=== PATIENT | female | born 1945 | race Hispanic/Latino ===

== ENCOUNTER 2020-10-08 12:31 | Inpatient (IN) | payer MEDICARE ==
[2020-10-08] MEDS ORDERED: SODIUM CHLORIDE 0.9% 1000 ML 1,000 ML IV ONE (12:52)
[2020-10-08] MEDS ORDERED: ONDANSETRON 4 MG/2 ML INJ IV ONE (12:52)
--- NOTE | 2020-10-08 13:07 | Emergency Department Report ---
HPI <NIDIA CISNEROS - Last Filed: 10/08/20 18:06> - [facility] HPI: This is a 75-year-old female presents to the emergency department with a complaint of "I think I have a blockage." The patient has been dealing with nausea, vomiting and abdominal pain over the past few weeks. She says that she has lost about 10 to 20 pounds over that time as she is unable to eat anything without increased nausea with vomiting. She says that if she does not have any food in her stomach then she just "retches." Patient also says that she has not had a normal or satisfactory bowel movement in about 1 week. The patient went to [facility] last week for the same symptoms and says that she was "sent home to follow-up with my doctor", Dr. Sexton in [place]. He recommended that she try an enema, but the patient says that "it did nothing." She denies any past medical history. She is a tobacco smoker up until a few days ago. She denies any fever, dysuria, vaginal bleeding or discharge, rectal bleeding, diarrhea. <AVNI GIBBS - Last Filed: 10/11/20 10:00> - General Time Seen by Provider: 10/08/20 12:45 ED Past Medical Hx <NIDIA CISNEROS - Last Filed: 10/08/20 18:06> <AVNI GIBBS - Last Filed: 10/11/20 10:00> - Medications Home Medications: Home Medications Medication Instructions Recorded Confirmed Last Taken Type Levothyroxine [Synthroid] 50 mcg PO QAM 10/09/20 10/09/20 2 Weeks Ago History ~09/25/20 50 mcg ED Review of Systems ROS: Stated complaint: UNABLE TO HAVE BOWEL MOVEMENT Other details as noted in HPI <NIDIA CISNEROS - Last Filed: 10/08/20 18:06> ROS: Stated complaint: UNABLE TO HAVE BOWEL MOVEMENT Other details as noted in HPI Comment: All other systems reviewed and negative Constitutional: denies: chills, fever Eyes: denies: eye pain, vision change ENT: denies: ear pain, throat pain Respiratory: denies: cough, shortness of breath Cardiovascular: denies: chest pain, palpitations Endocrine: unexplained weight loss Gastrointestinal: abdominal pain, nausea, vomiting, constipation Genitourinary: denies: dysuria, discharge Musculoskeletal: denies: back pain, arthralgia Skin: denies: rash, lesions Neurological: denies: headache, weakness <AVNI GIBBS - Last Filed: 10/11/20 10:00> Physical Exam - Physical Exam Vital Signs: Vital Signs 10/08/20 10/08/20 12:42 13:09 Temperature 97.8 F Pulse Rate 88 Respiratory 22 18 Rate Blood Pressure 179/98 [Left] O2 Sat by Pulse 98 Oximetry <NIDIA CISNEROS - Last Filed: 10/08/20 18:06> - Physical Exam Vital Signs: Vital Signs 10/08/20 12:42 Temperature 97.8 F Pulse Rate 88 Respiratory 22 Rate Blood Pressure 179/98 [Left] O2 Sat by Pulse 98 Oximetry Physical Exam: GENERAL: The patient is well-developed well-nourished. HENT: Normocephalic. Atraumatic. Patient has moist mucous membranes. EYES: Extraocular motions are intact. NECK: Supple. Trachea is midline. CHEST/LUNGS: Clear to auscultation. There is no respiratory distress noted. HEART/CARDIOVASCULAR: Regular. There is no tachycardia. There is no murmur. ABDOMEN: Abdomen is soft. The patient has abdominal tenderness to palpation all quadrants except for her left upper quadrant. No guarding. Patient has normal bowel sounds. SKIN: Skin is warm and dry. NEURO: The patient is awake, alert, and oriented. The patient is cooperative. The patient has no focal neurologic deficits. Normal speech. MUSCULOSKELETAL: There is no tenderness or deformity. There is no limitation range of motion. <AVNI GIBBS - Last Filed: 10/11/20 10:00> ED Course Vital Signs 10/08/20 10/08/20 12:42 13:09 Temperature 97.8 F Pulse Rate 88 Respiratory 22 18 Rate Blood Pressure 179/98 [Left] O2 Sat by Pulse 98 Oximetry <NIDIA CISNEROS - Last Filed: 10/08/20 18:06> Vital Signs 10/08/20 12:42 Temperature 97.8 F Pulse Rate 88 Respiratory 22 Rate Blood Pressure 179/98 [Left] O2 Sat by Pulse 98 Oximetry <AVNI GIBBS - Last Filed: 10/11/20 10:00> ED Medical Decision Making - Lab Data Result diagrams: 10/08/20 13:34 10/08/20 13:34 - Medical Decision Making Patient is 75-year-old female signed out to me by my colleague Dr. Gibbs. Patient presented to the ER complaining of diffuse abdominal pain for approximately 1week. Labs reviewed and showed elevated white blood cells of 14. Patient received Zosyn. CT abdomen and pelvis with IV contrast showed dilated small bowel loops in also thickening in the sigmoid concerning for colitis and also concern for malignancy. I discussed the patient with Dr. Luna, surgeon industrial economist and he advised that she will follow-up with the patient. I discussed the patient with Dr. Kelley, he agreed to admit the patient to medical service for further management. <NIDIA CISNEROS. - Last Filed: 10/08/20 18:06> - Lab Data Result diagrams: 10/10/20 05:15 10/10/20 05:15 Lab Results 10/08/20 10/08/20 Range/Units 13:34 13:34 WBC 14.6 H (4.5-11.0) K/mm3 RBC 5.49 H (3.65-5.03) M/mm3 Hgb 17.6 H (10.1-14.3) gm/dl Hct 51.6 H (30.3-42.9) % MCV 94 (79-97) fl MCH 32 (28-32) pg MCHC 34 (30-34) % RDW 13.9 (13.2-15.2) % Plt Count 307 (140-440) K/mm3 Lymph % (Auto) 11.4 L (13.4-35.0) % Hancock % (Auto) 7.0 (0.0-7.3) % Eos % (Auto) 0.3 (0.0-4.3) % Baso % (Auto) 0.5 (0.0-1.8) % Lymph # (Auto) 1.7 (1.2-5.4) K/mm3 Hancock # (Auto) 1.0 H (0.0-0.8) K/mm3 Eos # (Auto) 0.0 (0.0-0.4) K/mm3 Baso # (Auto) 0.1 (0.0-0.1) K/mm3 Seg Neutrophils % 80.8 H (40.0-70.0) % Seg Neutrophils # 11.8 H (1.8-7.7) K/mm3 Sodium 135 L (137-145) mmol/L Potassium 3.6 (3.6-5.0) mmol/L Chloride 99.0 (98-107) mmol/L Carbon Dioxide 20 L (22-30) mmol/L Anion Gap 20 mmol/L BUN 16 (7-17) mg/dL Creatinine 0.7 (0.6-1.2) mg/dL Estimated GFR > 60 ml/min BUN/Creatinine Ratio 23 % Glucose 116 H (65-100) mg/dL Calcium 8.8 (8.4-10.2) mg/dL Total Bilirubin 0.90 (0.1-1.2) mg/dL AST 17 (5-40) units/L ALT 16 (7-56) units/L Alkaline Phosphatase 63 (35-129) units/L Total Protein 6.5 (6.3-8.2) g/dL Albumin 3.8 L (3.9-5) g/dL Albumin/Globulin Ratio 1.4 % Lipase 11 L (13-60) units/L - Radiology Data Radiology results: report reviewed CT ABDOMEN AND PELVIS WITH CONTRAST INDICATION / CLINICAL INFORMATION: Unspecified abdominal pain, prior abnormal acute abdomen series. TECHNIQUE: Axial CT images were obtained through the abdomen and pelvis after 100 cc Omnipaque [address] scans at this location are performed using CT dose reduction for ALARA by means of automated exposure control. COMPARISON: Abdominal series performed earlier today. FINDINGS: LOWER CHEST: No significant abnormality. LIVER: No significant abnormality. GALLBLADDER: Surgically absent. BILE DUCTS: Prominence of the bile ducts is compatible with the patient's age and prior cholecystectomy. No acute abnormality. PANCREAS: No significant abnormality. SPLEEN: No significant abnormality. ADRENALS: No significant abnormality. RIGHT KIDNEY / URETER: No significant abnormality. LEFT KIDNEY / URETER: No significant abnormality. STOMACH / SMALL BOWEL: No significant abnormality of the stomach or duodenum. Mildly dilated small bowel loops are seen beginning along the proximal/mid jejunum that continues to the ileocecal valve without a distinct transition point. No other significant abnormality is identified. COLON: There is sigmoid diverticulosis without evidence of diverticulitis. Moderate focal thickening of the distal third of the transverse colon is noted on image 56 of series 2 spanning a distance of 3.5 cm. There is nonspecific mild distention of the cecum. No other significant abnormality is noted. APPENDIX: Not visualized. PERITONEUM: No free fluid. No free air. No flui d collection. LYMPH NODES: No significant adenopathy. AORTA / ARTERIES: The aorta is normal in caliber with mild generalized atherosclerosis. IVC / VEINS: No significant abnormality. URINARY BLADDER: No significant abnormality. REPRODUCTIVE ORGANS: No significant abnormality. ADDITIONAL FINDINGS: None. SKELETAL SYSTEM: The bones are demineralized with mild degenerative changes throughout the spine. No acute abnormality. IMPRESSION: 1. Nonspecific mild small bowel dilatation without a distinct transition point. Close clinical follow-up is recommended. 2. Suspicious focal thickening of the transverse colon as above. Malignancy cannot be excluded. Further evaluation with colonoscopy when the patient's clinical condition allows is recommended. 3. Additional findings as above. <AVNI GIBBS S - Last Filed: 10/11/20 10:00> Critical care attestation.: If time is entered above; I have spent that time in minutes in the direct care of this critically ill patient, excluding procedure time. <NIDIA CISNEROS. - Last Filed: 10/08/20 18:06> Critical Care Time: No Critical care attestation.: If time is entered above; I have spent that time in minutes in the direct care of this critically ill patient, excluding procedure time. <AVNI GIBBS S - Last Filed: 10/11/20 10:00> ED Disposition Is pt being admited?: Yes <NIDIA CISNEROS. - Last Filed: 10/08/20 18:06> Is pt being admited?: Yes <AVNI GIBBS S - Last Filed: 10/11/20 10:00> Clinical Impression: Acute colitis Abdominal pain Qualifiers: Abdominal location: unspecified location Qualified Code(s): R10.9 - Unspecified abdominal pain Disposition: OP ADMIT IP TO THIS HOSP Condition: Stable
--- NOTE | 2020-10-08 14:12 | XRay Report ---
ABDOMEN 2 VIEW WITH PA CHEST INDICATION / CLINICAL INFORMATION: Abd pain. COMPARISON: None available. FINDINGS: Chest: PA view of the chest shows normal cardiomediastinal silhouette and pulmonary vascularity. Both lungs are well-expanded and clear. Supine and erect views of the abdomen demonstrate mild gaseous distention of both small and large bow el. Stool and gas are present within the rectum. No visible free air. There is suggestion of possible mild colonic wall thickening mostly identified in the ascending and t ransverse colon raising possibility for colitis. IMPRESSION: Abnormal bowel gas pattern with gaseous distention of both small and large bowel. There i s questionable colonic wall edema raising suspicion for colitis. I would suggest further evaluation w ith CT abdomen/pelvis, if possible. Signer Name: Carmen Lawler MD Signed: 10/08/2020 1:36 PM Workstation Name: [id number]
[2020-10-08 14:27] LABS: Basophils # (Auto) 0.1 K/mm3 (0.0-0.1); Basophils % (Auto) 0.5 % (0.0-1.8); Eosinophils % (Auto) 0.3 % (0.0-4.3); Hematocrit 51.6 % (30.3-42.9); Hemoglobin 17.6 gm/dl (10.1-14.3); Lymphocytes # (Auto) 1.7 K/mm3 (1.2-5.4); Lymphocytes % (Auto) 11.4 % (13.4-35.0); Mean Corpuscular HGB Conc 34 % (30-34); Mean Corpuscular Volume 94 fl (79-97); Platelet Count 307 K/mm3 (140-440); Red Blood Count 5.49 M/mm3 (3.65-5.03); Red Cell Distribution Width 13.9 % (13.2-15.2)
[2020-10-08 14:32] LABS: Alanine Aminotransferase 16 units/L (7-56); Albumin 3.8 g/dL (3.9-5); Blood Urea Nitrogen 16 mg/dL (7-17); Calcium 8.8 mg/dL (8.4-10.2); Hemolysis Index 1
[2020-10-08 14:39] LABS: BUN/Creatinine Ratio 23
--- NOTE | 2020-10-08 15:28 | Cat Scan Report ---
CT ABDOMEN AND PELVIS WITH CONTRAST INDICATION / CLINICAL INFORMATION: Unspecified abdominal pain, prior abnormal acute abdomen series. TECHNIQUE: Axial CT images were obtained through the abdomen and pelvis after 100 cc Omnipaque [address] scans at this location are performed using CT dose reduction for ALARA by means of automated exposure control. COMPARISON: Abdominal series performed earlier today. FINDINGS: LOWER CHEST: No significant abnormality. LIVER: No significant abnormality. GALLBLADDER: Surgically absent. BILE DUCTS: Prominence of the bile ducts is compatible with the patient's age and prior cholecystecto my. No acute abnormality. PANCREAS: No significant abnormality. SPLEEN: No significant abnormality. ADRENALS: No significant abnormality. RIGHT KIDNEY / URETER: No significant abnormality. LEFT KIDNEY / URETER: No significant abnormality. STOMACH / SMALL BOWEL: No significant abnormality of the stomach or duodenum. Mildly dilated small zeina wel loops are seen beginning along the proximal/mid jejunum that continues to the ileocecal valve wit hout a distinct transition point. No other significant abnormality is identified. COLON: There is sigmoid diverticulosis without evidence of diverticulitis. Moderate focal thickening of the distal third of the transverse colon is noted on image 56 of series 2 spanning a distance of 3 .5 cm. There is nonspecific mild distention of the cecum. No other significant abnormality is noted. APPENDIX: Not visualized. PERITONEUM: No free fluid. No free air. No fluid collection. LYMPH NODES: No significant adenopathy. AORTA / ARTERIES: The aorta is normal in caliber with mild generalized atherosclerosis. IVC / VEINS: No significant abnormality. URINARY BLADDER: No significant abnormality. REPRODUCTIVE ORGANS: No significant abnormality. ADDITIONAL FINDINGS: None. SKELETAL SYSTEM: The bones are demineralized with mild degenerative changes throughout the spine. No acute abnormality. IMPRESSION: 1. Nonspecific mild small bowel dilatation without a distinct transition point. Close clinical follow -up is recommended. 2. Suspicious focal thickening of the transverse colon as above. Malignancy cannot be excluded. Furth er evaluation with colonoscopy when the patient's clinical condition allows is recommended. 3. Additional findings as above. Signer Name: Leonel Rosas MD Signed: 10/08/2020 3:23 PM Workstation Name: [id number]
[2020-10-08] MEDS ORDERED: PIPERACILLIN/TAZOBACTAM 3.375 3.375 GM/50 ML BAG IV ONE ×2 (16:36→20:30)
--- NOTE | 2020-10-08 21:41 | History and Physical Report ---
History of Present Illness Date of examination: 10/08/20 Date of admission: 10/08/20 17:41 Chief complaint: Vomiting for 2 weeks History of present illness: 75-year-old female comes into the emergency room for persistent vomiting of 2 weeks duration. Patient also has abdominal pain. Patient says that she is not able to keep anything down and cannot tolerate solids. No fever or chills. Abdominal pain is about 6 on a scale of 1-10 and intermittent in nature. Patient states that she has a bowel obstruction. Patient says says she did not have any bowel movement in the last few days. Patient went to [facility] last week and was evaluated and discharged. No significant past medical history. Smokes about half a pack a day. Patient states is mostly bilateral and dry heaving. No food poisoning. No history of small bowel obstruction. Had surgery for ovarian abscess presumably many years ago This is a 75-year-old female presents to the emergency department with a complaint of "I think I have a blockage." The patient has been dealing with nausea, vomiting and abdominal pain over the past few weeks. She says that she has lost about 10 to 20 pounds over that time as she is unable to eat anything without increased nausea with vomiting. She says that if she does not have any food in her stomach then she just "retches." Patient also says that she has not had a normal or satisfactory bowel movement in about 1 week. The patient went to [facility] last week for the same symptoms and says that she was "sent home to follow-up with my doctor", Dr. Sexton in [place]. He recommended that she try an enema, but the patient says that "it did nothing." She denies any past medical history. She is a tobacco smoker up until a few days ago. She denies any fever, dysuria, vaginal bleeding or discharge, rectal bleeding, diarrhea. Review of Systems ROS: Stated complaint: UNABLE TO HAVE BOWEL MOVEMENT Other details as noted in HPI Comment: All other systems reviewed and negative Constitutional: denies: chills, fever Eyes: denies: eye pain, vision change ENT: denies: ear pain, throat pain Respiratory: denies: cough, shortness of breath Cardiovascular: denies: chest pain, palpitations Endocrine: unexplained weight loss Gastrointestinal: abdominal pain, nausea, vomiting, constipation Genitourinary: denies: dysuria, discharge Musculoskeletal: denies: back pain, arthralgia Skin: denies: rash, lesions Neurological: denies: headache, weakness Past History Past Medical History: No medical history Past Surgical History: Other (Lower abdominal surgery for ovarian abscess) Social history: lives with family, smoking (Half a pack a day.), full code Family history: hypertension Medications and Allergies Allergies Allergy/AdvReac Type Severity Reaction Status Date / Time No Known Allergies Allergy Unverified 10/08/20 19:55 Exam - Constitutional Vitals: Temp Pulse Resp BP Pulse Ox 98.4 F 65 14 150/75 97 10/08/20 20:00 10/08/20 20:30 10/08/20 20:30 10/08/20 20:30 10/08/20 20:30 General appearance: Present: mild distress, well-nourished - EENT Eyes: Present: PERRL ENT: hearing intact, clear oral mucosa - Neck Neck: Present: supple, normal ROM - Respiratory Respiratory effort: normal Respiratory: bilateral: CTA - Cardiovascular Heart rate: 98 Rhythm: regular (98) Heart Sounds: Present: S1 & S2. Absent: rub, click - Extremities Extremities: pulses symmetrical, No edema Peripheral Pulses: within normal limits - Abdominal General gastrointestinal: Present: soft, tender, normal bowel sounds Localized gastrointestinal: tender: diffuse (No guarding) Female genitourinary: Present: normal - Rectal Rectal Exam: deferred - Integumentary Integumentary: Present: clear, warm, dry - Musculoskeletal Musculoskeletal: gait normal, strength equal bilaterally - Psychiatric Psychiatric: appropriate mood/affect, intact judgment & insight - Neurologic Neurologic: CNII-XII intact, moves all extremities - Allied Health Allied health notes reviewed: nursing, case management Results - Labs CBC & Chem 7: 10/08/20 13:34 10/08/20 13:34 Labs: Laboratory Last Values WBC 14.6 K/mm3 (4.5-11.0) H 10/08/20 13:34 RBC 5.49 M/mm3 (3.65-5.03) H 10/08/20 13:34 Hgb 17.6 gm/dl (10.1-14.3) H 10/08/20 13:34 Hct 51.6 % (30.3-42.9) H 10/08/20 13:34 MCV 94 fl (79-97) 10/08/20 13:34 MCH 32 pg (28-32) 10/08/20 13:34 MCHC 34 % (30-34) 10/08/20 13:34 RDW 13.9 % (13.2-15.2) 10/08/20 13:34 Plt Count 307 K/mm3 (140-440) 10/08/20 13:34 Lymph % (Auto) 11.4 % (13.4-35.0) L 10/08/20 13:34 Turner % (Auto) 7.0 % (0.0-7.3) 10/08/20 13:34 Eos % (Auto) 0.3 % (0.0-4.3) 10/08/20 13:34 Baso % (Auto) 0.5 % (0.0-1.8) 10/08/20 13:34 Lymph # (Auto) 1.7 K/mm3 (1.2-5.4) 10/08/20 13:34 Turner # (Auto) 1.0 K/mm3 (0.0-0.8) H 10/08/20 13:34 Eos # (Auto) 0.0 K/mm3 (0.0-0.4) 10/08/20 13:34 Baso # (Auto) 0.1 K/mm3 (0.0-0.1) 10/08/20 13:34 Seg Neutrophils % 80.8 % (40.0-70.0) H 10/08/20 13:34 Seg Neutrophils # 11.8 K/mm3 (1.8-7.7) H 10/08/20 13:34 Sodium 135 mmol/L (137-145) L 10/08/20 13:34 Potassium 3.6 mmol/L (3.6-5.0) 10/08/20 13:34 Chloride 99.0 mmol/L (98-107) 10/08/20 13:34 Carbon Dioxide 20 mmol/L (22-30) L 10/08/20 13:34 Anion Gap 20 mmol/L 10/08/20 13:34 BUN 16 mg/dL (7-17) 10/08/20 13:34 Creatinine 0.7 mg/dL (0.6-1.2) 10/08/20 13:34 Estimated GFR > 60 ml/min 10/08/20 13:34 BUN/Creatinine Ratio 23 % 10/08/20 13:34 Glucose 116 mg/dL (65-100) H 10/08/20 13:34 Lactic Acid 1.00 mmol/L (0.7-2.0) 10/08/20 16:30 Calcium 8.8 mg/dL (8.4-10.2) 10/08/20 13:34 Total Bilirubin 0.90 mg/dL (0.1-1.2) 10/08/20 13:34 AST 17 units/L (5-40) 10/08/20 13:34 ALT 16 units/L (7-56) 10/08/20 13:34 Alkaline Phosphatase 63 units/L (35-129) 10/08/20 13:34 Total Protein 6.5 g/dL (6.3-8.2) 10/08/20 13:34 Albumin 3.8 g/dL (3.9-5) L 10/08/20 13:34 Albumin/Globulin Ratio 1.4 % 10/08/20 13:34 Lipase 11 units/L (13-60) L 10/08/20 13:34 - Imaging and Cardiology CT scan - abdomen: report reviewed Imaging and Cardiology: Abdominal CAT scan STOMACH / SMALL BOWEL: No significant abnormality of the stomach or duodenum. Mildly dilated small bowel loops are seen beginning along the proximal/mid jejunum that continues to the ileocecal valve without a distinct transition point. No other significant abnormality is identified. COLON: There is sigmoid diverticulosis without evidence of diverticulitis. Moderate focal thickening of the distal third of the transverse colon is noted on image 56 of series 2 spanning a distance of 3.5 cm. There is nonspecific mild distention of the cecum. No other significant abnormality is noted. APPENDIX: Not visualized. PERITONEUM: No free fluid. No free air. No fluid collection. LYMPH NODES: No significant adenopathy. AORTA / ARTERIES: The aorta is normal in caliber with mild generalized atherosclerosis. IVC / VEINS: No significant abnormality. URINARY BLADDER: No significant abnormality. REPRODUCTIVE ORGANS: No significant abnormality. ADDITIONAL FINDINGS: None. SKELETAL SYSTEM: The bones are demineralized with mild degenerative changes throughout the spine. No acute abnormality IMPRESSION: 1. Nonspecific mild small bowel dilatation without a distinct transition point. Close clinical follow-up is recommended. 2. Suspicious focal thickening of the transverse colon as above. Malignancy cannot be excluded. Further evaluation with colonoscopy when the patient's clinical condition allows is recommended. 3. Additional findings as above. Signer Name: Leonel Rosas MD Signed: 10/08/2020 3:23 PM Workstation Name: [id number] Chest x-ray IMPRESSION: Abnormal bowel gas pattern with gaseous distention of both small and large bowel. There is questionable colonic wall edema raising suspicion for colitis. I would suggest further evaluation with CT abdomen/pelvis, if possible. Signer Name: Carmen Lawler MD Signed: 10/08/2020 1:36 PM Workstation Name: [id number] Assessment and Plan Advance Directives: Yes (Full code) VTE prophylaxis?: Chemical Plan of care discussed with patient/family: Yes - Patient Problems (1) Acute gastroenteritis Current Visit: Yes Status: Acute Plan to address problem: Small bowel loops are dilated No signs of obstruction We will keep the patient n.p.o. and advance to clear liquids after surgery clears IV fluids for now Pain management for now Etiology unclear IV Zosyn started empirically (2) Polycythemia due to fall in plasma volume Current Visit: Yes Status: Acute Plan to address problem: IV Fluids for now (3) Colon wall thickening Current Visit: Yes Status: Acute Plan to address problem: Transverse colon is thickened Malignancy to be ruled out GI consult requested (4) Hyponatremia Current Visit: Yes Status: Acute Plan to address problem: Mild\\ IV fluids for now (5) Malnutrition Current Visit: Yes Status: Chronic Qualifiers: Protein-calorie malnutrition severity: mild Plan to address problem: Dietary supplements once she starts eating (6) DVT prophylaxis Current Visit: Yes Status: Acute Plan to address problem: On heparin and GI prophylaxis
[2020-10-08] MEDS ORDERED: MORPHINE 2 MG/1 ML INJ IV PRN (21:46)
[2020-10-08] MEDS ORDERED: ONDANSETRON 4 MG/2 ML INJ IV PRN ×2 (21:46→21:55)
[2020-10-08] MEDS ORDERED: ACETAMINOPHEN 325 MG TAB PO PRN ×2 (21:46→21:53)
[2020-10-08] MEDS ORDERED: HYDROmorphone 1 MG/1 ML INJ IV PRN (21:46)
[2020-10-08] MEDS ORDERED: METOCLOPRAMIDE 10 MG/2 ML INJ IV PRN (21:53)
[2020-10-08] MEDS ORDERED: D5W/0.9% NACL 1,000 ML IV SCH (22:00)
[2020-10-08] MEDS ORDERED: PIPERACIL/TAZOBACTA 4.5/NS 100 4.5 GM/100 ML VIAL IV SCH (22:00)
[2020-10-08] MEDS: HEPARIN 5,000 UNIT/1 ML VIAL SUB-Q SCH (23:23)
[2020-10-09] MEDS: FAMOTIDINE 20 MG/2 ML INJ IV SCH ×4 (00:46→22:40)
[2020-10-09 01:15] LABS: Bilirubin,Urine NEG (Negative); Blood,Urine NEG (Negative); Color,Urine Amber (Yellow); Mucus,Urine FEW /HPF
[2020-10-09 07:25] LABS: Basophils # (Auto) 0.1 K/mm3 (0.0-0.1); Basophils % (Auto) 0.6 % (0.0-1.8); Eosinophils # (Auto) 0.1 K/mm3 (0.0-0.4); Eosinophils % (Auto) 0.9 % (0.0-4.3); Hematocrit 46.7 % (30.3-42.9); Lymphocytes # (Auto) 1.4 K/mm3 (1.2-5.4); Lymphocytes % (Auto) 11.1 % (13.4-35.0); Mean Corpuscular HGB Conc 34 % (30-34); Mean Corpuscular Volume 92 fl (79-97); Monocytes % (Auto) 7.8 % (0.0-7.3); Platelet Count 278 K/mm3 (140-440); Red Blood Count 5.07 M/mm3 (3.65-5.03); Red Cell Distribution Width 13.9 % (13.2-15.2)
[2020-10-09] MEDS: PIPERACIL/TAZOBACTA 4.5/NS 100 4.5 GM/100 ML VIAL IV SCH ×2 (07:44→17:52)
[2020-10-09 07:47] LABS: Alanine Aminotransferase 11 units/L (7-56); Albumin 3.3 g/dL (3.9-5); Blood Urea Nitrogen 11 mg/dL (7-17); Calcium 8.4 mg/dL (8.4-10.2); Hemolysis Index 2
[2020-10-09] MEDS: HEPARIN 5,000 UNIT/1 ML VIAL SUB-Q SCH ×3 (07:59→22:00)
[2020-10-09 08:17] LABS: BUN/Creatinine Ratio 18
--- NOTE | 2020-10-09 09:16 | XRay Report ---
ABDOMEN 1 VIEW INDICATION / CLINICAL INFORMATION: enteritis, vomiting. COMPARISON: CT abdomen and pelvis with contrast and acute abdomen series from 10/08/2020. FINDINGS: TUBES / LINES: None. BOWEL GAS PATTERN: There is persistent generalized small bowel dilatation and distention of the right : . FREE AIR / EXTRALUMINAL GAS: None seen. ADDITIONAL FINDINGS: No significant additional findings. IMPRESSION: Similar findings of probable enterocolitis. Continued radiographic follow-up to resolution is recomme nded. Signer Name: Leonel Rosas MD Signed: 10/09/2020 9:11 AM Workstation Name: [id number]
--- NOTE | 2020-10-09 09:19 | Progress Note ---
Assessment and Plan Assessment and plan: --Hypokalemia; Current Visit: Yes Status: Acute, KCl IV 40 mEq , check magnesium Closely monitor electrolytes -- Acute gastroenteritis Current Visit: Yes Status: Acute, Plan to address problem: Small bowel loops are dilated No signs of obstruction, N.p.o., IV fluids Pain medications supportive care IV Zosyn started empirically Surgery consulted CT abdomen and pelvis ; nonspecific mild small bowel dilation without transition point suspicious focal thickening of the transverse colon malignancy cannot be excluded Abdominal x-ray; Similar findings of probable enterocolitis Radiographic follow-up to resolution needed --Polycythemia due to hemoconcentration Current Visit: Yes Status: Acute Plan to address problem: IV Fluids , closely monitor -- Colon wall thickening Current Visit: Yes Status: Acute Plan to address problem: Transverse colon is thickened Malignancy to be ruled out GI consult requested -- Hyponatremia Current Visit: Yes Status: Acute Plan to address problem: Mild\ IV fluids for now --Malnutrition Current Visit: Yes Status: Chronic Plan to address problem: Dietary supplements once she starts eating -- DVT prophylaxis Current Visit: Yes Status: Acute Plan to address problem: On heparin and GI prophylaxis Follow surgery and GI evaluation and recommendations Closely monitor the patient and adjust the management as needed Plan of care reviewed with the patient and her nurse History Interval history: I have seen and examined the patient at the bedside Patient's chart and medications reviewed Patient complains of 2 weeks of constipation Nausea vomiting Vague abdominal pain, n.p.o. status Vital signs noted Hospitalist Physical - Constitutional Vitals: Temp Pulse Resp BP Pulse Ox 97.8 F 69 20 146/77 97 10/09/20 07:25 10/09/20 07:25 10/09/20 07:25 10/09/20 07:25 10/09/20 07:25 General appearance: Present: mild distress, well-nourished - EENT Eyes: Present: PERRL, EOM intact - Neck Neck: Present: supple, normal ROM - Respiratory Respiratory effort: normal Respiratory: bilateral: diminished, negative: rales, rhonchi, wheezing - Cardiovascular Rhythm: regular Heart Sounds: Present: S1 & S2 - Extremities Extremities: no ischemia, No edema - Abdominal General gastrointestinal: soft, tender (No guarding no rigidity), non-distended - Integumentary Integumentary: Present: clear, warm - Psychiatric Psychiatric: appropriate mood/affect, cooperative - Neurologic Neurologic: CNII-XII intact Results - Labs CBC & Chem 7: 10/09/20 07:09 10/09/20 07:09 Labs: Laboratory Last Values WBC 12.2 K/mm3 (4.5-11.0) H 10/09/20 07:09 RBC 5.07 M/mm3 (3.65-5.03) H 10/09/20 07:09 Hgb 16.0 gm/dl (10.1-14.3) H 10/09/20 07:09 Hct 46.7 % (30.3-42.9) H 10/09/20 07:09 MCV 92 fl (79-97) 10/09/20 07:09 MCH 32 pg (28-32) 10/09/20 07:09 MCHC 34 % (30-34) 10/09/20 07:09 RDW 13.9 % (13.2-15.2) 10/09/20 07:09 Plt Count 278 K/mm3 (140-440) 10/09/20 07:09 Lymph % (Auto) 11.1 % (13.4-35.0) L 10/09/20 07:09 [place] % (Auto) 7.8 % (0.0-7.3) H 10/09/20 07:09 Eos % (Auto) 0.9 % (0.0-4.3) 10/09/20 07:09 Baso % (Auto) 0.6 % (0.0-1.8) 10/09/20 07:09 Lymph # (Auto) 1.4 K/mm3 (1.2-5.4) 10/09/20 07:09 [place] # (Auto) 1.0 K/mm3 (0.0-0.8) H 10/09/20 07:09 Eos # (Auto) 0.1 K/mm3 (0.0-0.4) 10/09/20 07:09 Baso # (Auto) 0.1 K/mm3 (0.0-0.1) 10/09/20 07:09 Seg Neutrophils % 79.6 % (40.0-70.0) H 10/09/20 07:09 Seg Neutrophils # 9.7 K/mm3 (1.8-7.7) H 10/09/20 07:09 Sodium 134 mmol/L (137-145) L 10/09/20 07:09 Potassium 3.2 mmol/L (3.6-5.0) L 10/09/20 07:09 Chloride 102.1 mmol/L (98-107) 10/09/20 07:09 Carbon Dioxide 22 mmol/L (22-30) 10/09/20 07:09 Anion Gap 13 mmol/L 10/09/20 07:09 BUN 11 mg/dL (7-17) 10/09/20 07:09 Creatinine 0.6 mg/dL (0.6-1.2) 10/09/20 07:09 Estimated GFR > 60 ml/min 10/09/20 07:09 BUN/Creatinine Ratio 18 % 10/09/20 07:09 Glucose 134 mg/dL (65-100) H 10/09/20 07:09 Hemoglobin A1c 5.2 % (4-6) 10/09/20 07:09 Lactic Acid 1.00 mmol/L (0.7-2.0) 10/08/20 16:30 Calcium 8.4 mg/dL (8.4-10.2) 10/09/20 07:09 Total Bilirubin 0.80 mg/dL (0.1-1.2) 10/09/20 07:09 AST 11 units/L (5-40) 10/09/20 07:09 ALT 11 units/L (7-56) 10/09/20 07:09 Alkaline Phosphatase 54 units/L (35-129) 10/09/20 07:09 Total Protein 5.3 g/dL (6.3-8.2) L 10/09/20 07:09 Albumin 3.3 g/dL (3.9-5) L 10/09/20 07:09 Albumin/Globulin Ratio 1.7 % 10/09/20 07:09 Lipase 11 units/L (13-60) L 10/08/20 13:34 Urine Color [place] (Yellow) 10/09/20 00:10 Urine Turbidity Clear (Clear) 10/09/20 00:10 Urine pH 5.0 (5.0-7.0) 10/09/20 00:10 Ur Specific [place] 1.060 (1.003-1.030) H 10/09/20 00:10 Urine Protein 30 mg/dl mg/dL (Negative) 10/09/20 00:10 Urine Glucose (UA) Neg mg/dL (Negative) 10/09/20 00:10 Urine Ketones 80 mg/dL (Negative) 10/09/20 00:10 Urine Blood Neg (Negative) 10/09/20 00:10 Urine Nitrite Neg (Negative) 10/09/20 00:10 Urine Bilirubin Neg (Negative) 10/09/20 00:10 Urine Urobilinogen 4.0 mg/dL (<2.0) 10/09/20 00:10 Ur Leukocyte Esterase Neg (Negative) 10/09/20 00:10 Urine WBC (Auto) 9.0 /HPF (0.0-6.0) H 10/09/20 00:10 Urine RBC (Auto) 3.0 /HPF (0.0-6.0) 10/09/20 00:10 U Epithel Cells (Auto) 1.0 /HPF (0-13.0) 10/09/20 00:10 Urine Mucus Few /HPF 10/09/20 00:10 Active Medications - Current Medications Current Medications: Generic Name Dose Route Start Last Admin Trade Name Freq PRN Reason Stop Dose Admin Acetaminophen 650 mg 10/08/20 21:53 Acetaminophen 325 Mg Tab PO Q4H PRN Pain MILD(1-3)/Fever >100.5/[place] Famotidine 20 mg 10/08/20 22:00 10/09/20 07:59 Famotidine 20 Mg/2 Ml Inj IV 20 mg BID CAM Administration Heparin Sodium (Porcine) 5,000 unit 10/08/20 22:00 10/09/20 07:59 Heparin 5,000 Unit/1 Ml Vial SUB-Q 5,000 unit Q12HR CAM Administration Hydromorphone HCl 0.5 mg 10/08/20 21:46 Hydromorphone 1 Mg/1 Ml Inj IV Q3H PRN Pain , Severe (7-10) Dextrose/Sodium Chloride 1,000 mls @ 125 mls/hr 10/08/20 22:00 10/09/20 00:46 D5ns IV 125 mls/hr DIRECT CAM Administration Piperacillin Sod/Tazobactam Sod 4.5 gm in 100 mls @ 200 mls/hr 10/09/20 06:00 10/09/20 07:44 Zosyn/Ns 4.5gm/100ml IV 200 mls/hr Q8HR CAM Administration Protocol Metoclopramide HCl 10 mg 10/08/20 21:53 10/09/20 01:24 Metoclopramide 10 Mg/2 Ml Inj IV 10 mg Q6H PRN Administration Nausea And Vomiting Morphine Sulfate 2 mg 10/08/20 21:46 Morphine 2 Mg/1 Ml Inj IV Q4H PRN Pain, Moderate (4-6) Ondansetron HCl 4 mg 10/08/20 21:53 Ondansetron 4 Mg/2 Ml Inj IV Q8H PRN Nausea And Vomiting Sodium Chloride 10 ml 10/08/20 22:00 10/09/20 00:47 Sodium Chloride 0.9% 10 Ml Flush Syringe IV 10 ml BID CAM Administration Sodium Chloride 10 ml 10/08/20 21:46 Sodium Chloride 0.9% 10 Ml Flush Syringe IV PRN PRN LINE FLUSH
--- NOTE | 2020-10-09 09:38 | Electrocardiograph Report ---
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
[2020-10-09] MEDS ORDERED: POTASSIUM CHLORIDE 10 MEQ 10 MEQ/100 ML BAG IV SCH (10:00)
[2020-10-09] MEDS: ONDANSETRON 4 MG/2 ML INJ IV PRN ×2 (11:32→20:43)
--- NOTE | 2020-10-09 14:23 | Consultation ---
History of Present Illness Consult date: 10/09/20 Reason for consult: abdominal pain Chief complaint: abdominal pain - History of present illness History of present illness: 75 yo F with hx of hypothyroidism who presents to ER with 2-3 weeks of worsening abdominal pain, crampy in nature, located in the lower abdomen. The patient states she got the J-J COVID vaccine September 20. 10 days later she notes spasm/crampy abdominal pain that came in waves. The pain was not associated with food or an activity. She has never had pain like this before. This was associated with intermittent nausea and retching with then progressed to vomiting yellowish/brown fluid. She states she has had an extremely poor appetite. She has not had a BM for 2 weeks and has not been passing flatus. No f/c. She was seen at [facility] ER several days ago and had a CT scan. She states she was discharged from the ER. She followed up with her PCP several times. She was advised to take a fleet enema which she did. It did not help. She continued to have pain and therefore was advised to return to ER. She has never had a colonoscopy. Past History Past Medical History: hypothyroidism Past Surgical History: Other (Lower abdominal surgery for ovarian abscess, open cholecystectomy, ectopic ) Social history: lives with family, smoking (Half a pack a day.), full code Family history: hypertension Medications and Allergies Allergies Allergy/AdvReac Type Severity Reaction Status Date / Time No Known Allergies Allergy Unverified 10/08/20 19:55 Active Meds: Active Medications Acetaminophen (Acetaminophen 325 Mg Tab) 650 mg PO Q4H PRN PRN Reason: Pain MILD(1-3)/Fever >100.5/[place] Famotidine (Famotidine 20 Mg/2 Ml Inj) 20 mg IV BID [facility] Last Admin: 10/09/20 10:59 Dose: Not Given Documented by: Heparin Sodium (Porcine) (Heparin 5,000 Unit/1 Ml Vial) 5,000 unit SUB-Q Q12HR [facility] Last Admin: 10/09/20 11:00 Dose: Not Given Documented by: Hydromorphone HCl (Hydromorphone 1 Mg/1 Ml Inj) 0.5 mg IV Q3H PRN PRN Reason: Pain , Severe (7-10) Dextrose/Sodium Chloride (D5ns) 1,000 mls @ 125 mls/hr IV DIRECT CAM Last Admin: 10/09/20 00:46 Dose: 125 mls/hr Documented by: Piperacillin Sod/Tazobactam Sod (Zosyn/Ns 4.5gm/100ml) 4.5 gm in 100 mls @ 200 mls/hr IV Q8HR CAM; Protocol Last Admin: 10/09/20 07:44 Dose: 200 mls/hr Documented by: Morphine Sulfate (Morphine 2 Mg/1 Ml Inj) 2 mg IV Q4H PRN PRN Reason: Pain, Moderate (4-6) Ondansetron HCl (Ondansetron 4 Mg/2 Ml Inj) 4 mg IV Q8H PRN PRN Reason: Nausea And Vomiting Last Admin: 10/09/20 11:32 Dose: 4 mg Documented by: Sodium Chloride (Sodium Chloride 0.9% 10 Ml Flush Syringe) 10 ml IV BID CAM Last Admin: 10/09/20 11:01 Dose: Not Given Documented by: Sodium Chloride (Sodium Chloride 0.9% 10 Ml Flush Syringe) 10 ml IV PRN PRN PRN Reason: LINE FLUSH Review of Systems All systems: negative (10 pt ROS performed and neg except for that listed in HPI) Exam Vital Signs Temp Pulse Resp BP Pulse Ox 97.8 F 88 22 179/98 98 10/08/20 12:42 10/08/20 12:42 10/08/20 12:42 10/08/20 12:42 10/08/20 12:42 Narrative exam: Gen: AAOx3. NAD ENT: no scleral icterus or conjunctival pallor CV: S1, S2+ Resp: even and unlabored Abd: soft, ND, mild diffuse TTP. No r/r/g. Well healed surgical scars Ext: no c/c/e Results - Labs 10/09/20 07:09 10/09/20 07:09 Abnormal lab results 10/08/20 10/08/20 10/09/20 Range/Units 13:34 13:34 00:10 WBC 14.6 H (4.5-11.0) K/mm3 RBC 5.49 H (3.65-5.03) M/mm3 Hgb 17.6 H (10.1-14.3) gm/dl Hct 51.6 H (30.3-42.9) % Lymph % (Auto) 11.4 L (13.4-35.0) % [place] % (Auto) (0.0-7.3) % [place] # (Auto) 1.0 H (0.0-0.8) K/mm3 Seg Neutrophils % 80.8 H (40.0-70.0) % Seg Neutrophils # 11.8 H (1.8-7.7) K/mm3 Sodium 135 L (137-145) mmol/L Potassium (3.6-5.0) mmol/L Carbon Dioxide 20 L (22-30) mmol/L Glucose 116 H (65-100) mg/dL Total Protein (6.3-8.2) g/dL Albumin 3.8 L (3.9-5) g/dL Lipase 11 L (13-60) units/L Ur Specific [place] 1.060 H (1.003-1.030) Urine WBC (Auto) 9.0 H (0.0-6.0) /HPF 10/09/20 10/09/20 Range/Units 07:09 07:09 WBC 12.2 H (4.5-11.0) K/mm3 RBC 5.07 H (3.65-5.03) M/mm3 Hgb 16.0 H (10.1-14.3) gm/dl Hct 46.7 H (30.3-42.9) % Lymph % (Auto) 11.1 L (13.4-35.0) % [place] % (Auto) 7.8 H (0.0-7.3) % [place] # (Auto) 1.0 H (0.0-0.8) K/mm3 Seg Neutrophils % 79.6 H (40.0-70.0) % Seg Neutrophils # 9.7 H (1.8-7.7) K/mm3 Sodium 134 L (137-145) mmol/L Potassium 3.2 L (3.6-5.0) mmol/L Carbon Dioxide (22-30) mmol/L Glucose 134 H (65-100) mg/dL Total Protein 5.3 L (6.3-8.2) g/dL Albumin 3.3 L (3.9-5) g/dL Lipase (13-60) units/L Ur Specific [place] (1.003-1.030) Urine WBC (Auto) (0.0-6.0) /HPF Diabetes panel 10/08/20 10/09/20 10/09/20 Range/Units 13:34 07:09 07:09 Sodium 135 L 134 L (137-145) mmol/L Potassium 3.6 3.2 L (3.6-5.0) mmol/L Chloride 99.0 102.1 (98-107) mmol/L Carbon Dioxide 20 L 22 (22-30) mmol/L BUN 16 11 (7-17) mg/dL Creatinine 0.7 0.6 (0.6-1.2) mg/dL Glucose 116 H 134 H (65-100) mg/dL Hemoglobin A1c 5.2 (4-6) % Calcium 8.8 8.4 (8.4-10.2) mg/dL AST 17 11 (5-40) units/L ALT 16 11 (7-56) units/L Alkaline Phosphatase 63 54 (35-129) units/L Total Protein 6.5 5.3 L (6.3-8.2) g/dL Albumin 3.8 L 3.3 L (3.9-5) g/dL Calcium panel 10/08/20 10/09/20 Range/Units 13:34 07:09 Calcium 8.8 8.4 (8.4-10.2) mg/dL Albumin 3.8 L 3.3 L (3.9-5) g/dL Pituitary panel 10/08/20 10/09/20 Range/Units 13:34 07:09 Sodium 135 L 134 L (137-145) mmol/L Potassium 3.6 3.2 L (3.6-5.0) mmol/L Chloride 99.0 102.1 (98-107) mmol/L Carbon Dioxide 20 L 22 (22-30) mmol/L BUN 16 11 (7-17) mg/dL Creatinine 0.7 0.6 (0.6-1.2) mg/dL Glucose 116 H 134 H (65-100) mg/dL Calcium 8.8 8.4 (8.4-10.2) mg/dL Adrenal panel 10/08/20 10/09/20 Range/Units 13:34 07:09 Sodium 135 L 134 L (137-145) mmol/L Potassium 3.6 3.2 L (3.6-5.0) mmol/L Chloride 99.0 102.1 (98-107) mmol/L Carbon Dioxide 20 L 22 (22-30) mmol/L BUN 16 11 (7-17) mg/dL Creatinine 0.7 0.6 (0.6-1.2) mg/dL Glucose 116 H 134 H (65-100) mg/dL Calcium 8.8 8.4 (8.4-10.2) mg/dL Total Bilirubin 0.90 0.80 (0.1-1.2) mg/dL AST 17 11 (5-40) units/L ALT 16 11 (7-56) units/L Alkaline Phosphatase 63 54 (35-129) units/L Total Protein 6.5 5.3 L (6.3-8.2) g/dL Albumin 3.8 L 3.3 L (3.9-5) g/dL - Imaging CT scan - abdomen: report reviewed, image reviewed CT scan - pelvis: report reviewed, image reviewed Assessment and Plan 75 yo F with 1. enterocolitis 2. possible transverse colon mass Pt stable. Diffuse small bowel and cecal dilatation 2/2 enterocolitis and possible mass in transverse colon causing partial obstruction Abd xray - diffuse dilatation of small bowel and right colon Plan: 1. NPO except ice chips 2. IVF 3. prn pain and nausea control 4. DVT ppx 5. OOB/ambulate 6. GI consulted - may need cscope to evaluate distal transverse colon. Will follow up on recs 7. continue empiric abx Thank you, please call with questions
[2020-10-09] MEDS ORDERED: FLEET ENEMA PR ONE (20:51)
[2020-10-09] MEDS ORDERED: POLYETHYLENE GLYCOL/ELECT SOLN 4000 ML PO ONE (20:52)
[2020-10-10] MEDS: PIPERACIL/TAZOBACTA 4.5/NS 100 4.5 GM/100 ML VIAL IV SCH ×3 (00:04→15:10)
[2020-10-10] MEDS: D5NS W/KCL 20 MEQ 20 MEQ/1,000 ML BAG IV SCH ×2 (01:15→11:43)
[2020-10-10 06:29] LABS: Basophils # (Auto) 0.1 K/mm3 (0.0-0.1); Basophils % (Auto) 0.6 % (0.0-1.8); Eosinophils # (Auto) 0.1 K/mm3 (0.0-0.4); Eosinophils % (Auto) 0.5 % (0.0-4.3); Hematocrit 46.9 % (30.3-42.9); Hemoglobin 16.1 gm/dl (10.1-14.3); Lymphocytes # (Auto) 1.6 K/mm3 (1.2-5.4); Lymphocytes % (Auto) 14.7 % (13.4-35.0); Mean Corpuscular HGB Conc 34 % (30-34); Mean Corpuscular Volume 95 fl (79-97); Monocytes % (Auto) 8.5 % (0.0-7.3); Platelet Count 286 K/mm3 (140-440); Red Blood Count 4.95 M/mm3 (3.65-5.03)
[2020-10-10] MEDS: LEVOTHYROXINE 50 MCG TAB PO SCH (06:50)
[2020-10-10] MEDS: ONDANSETRON 4 MG/2 ML INJ IV PRN ×2 (06:56→15:49)
[2020-10-10 07:59] LABS: Blood Urea Nitrogen 10 mg/dL (7-17); Calcium 8.5 mg/dL (8.4-10.2); Hemolysis Index 48
--- NOTE | 2020-10-10 08:40 | Gastroenterology Consultation ---
History of Present Illness - Reason for Consult Consult date: 10/10/20 Abnormal CAT scan, abdominal pain Requesting physician: MARCUS AUSTIN - History of Present Illness This is a pleasant 75-year-old female who presents with worsening abdominal pain nausea and vomiting Patient reports for the last 2 months she has been having gradual change in bowel habits with abdominal distention and difficulty with passing her bowels She reports approximately 2 weeks ago she developed worsening abdominal pain that was severe, "like two animals fighting inside of me" and associated nausea and vomiting She reports she went to [facility] and was sent home She reports that the pain has been coming in waves, she tried taking an enema to help her go to the bathroom and to just make her pain worse and that she vomited up feces since the enema came straight out her mouth and therefore came into the emergency room here for further evaluation She reports she has never had a colonoscopy She reports weight loss over the last 1 to 2 months she is sure she has lost weight at least 10 pounds not sure of the exact amount however She reports 1 saw blood in the stool however has not seen maroon stool or melena and only had blood that one time CT scan here concerning for possible transverse colon malignancy Patient reports currently with nausea and decreased ability to eat and if she tries to take anything by mouth she has nausea and vomiting She reports mild to moderate diffuse abdominal pain which is waxing and waning worse with eating and palpation better with nothing No radiation Associated symptoms as above Reviewed records from [facility] last week. Patient had a CAT scan on October 01 which read: Mild gaseous distention of the ascending colon. Moderate stool scattered throughout the remainder of the colon. No definite evidence of small or large bowel obstruction. At that time her labs demonstrated white count 14.3, hemoglobin 15.4 and a comprehensive metabolic panel that was essentially normal Obtained/updated/reviewed patient's current medications Past History Past Medical History: hypothyroidism Past Surgical History: Other (Lower abdominal surgery for ovarian abscess, open cholecystectomy, ectopic ) Social history: lives with family, smoking (Half a pack a day.), full code Family history: hypertension Medications and Allergies Allergies Allergy/AdvReac Type Severity Reaction Status Date / Time No Known Allergies Allergy Verified 10/09/20 17:39 Home Medications Medication Instructions Recorded Confirmed Last Taken Type Levothyroxine [Synthroid] 50 mcg PO QAM 10/09/20 10/09/20 2 Weeks Ago History ~09/25/20 50 mcg Active Meds: Active Medications Acetaminophen (Acetaminophen 325 Mg Tab) 650 mg PO Q4H PRN PRN Reason: Pain MILD(1-3)/Fever >100.5/[place] Famotidine (Famotidine 20 Mg/2 Ml Inj) 20 mg IV BID [facility] Last Admin: 10/09/20 22:40 Dose: 20 mg Documented by: Heparin Sodium (Porcine) (Heparin 5,000 Unit/1 Ml Vial) 5,000 unit SUB-Q Q12HR [facility] Last Admin: 10/09/20 22:00 Dose: 5,000 unit Documented by: Hydromorphone HCl (Hydromorphone 1 Mg/1 Ml Inj) 0.5 mg IV Q3H PRN PRN Reason: Pain , Severe (7-10) Piperacillin Sod/Tazobactam Sod (Zosyn/Ns 4.5gm/100ml) 4.5 gm in 100 mls @ 200 mls/hr IV Q8HR [facility]; Protocol Last Admin: 10/10/20 06:57 Dose: 200 mls/hr Documented by: Potassium Chloride/Dextrose/Sod Cl (D5w/Ns W/Kcl 20meq) 20 meq in 1,000 mls @ 100 mls/hr IV DIRECT [facility] Last Admin: 10/10/20 01:15 Dose: 100 mls/hr Documented by: Levothyroxine Sodium (Levothyroxine 50 Mcg Tab) 50 mcg PO DAILY@0600 [facility] Last Admin: 10/10/20 06:50 Dose: Not Given Documented by: Morphine Sulfate (Morphine 2 Mg/1 Ml Inj) 2 mg IV Q4H PRN PRN Reason: Pain, Moderate (4-6) Ondansetron HCl (Ondansetron 4 Mg/2 Ml Inj) 4 mg IV Q8H PRN PRN Reason: Nausea And Vomiting Last Admin: 10/10/20 06:56 Dose: 4 mg Documented by: Sodium Chloride (Sodium Chloride 0.9% 10 Ml Flush Syringe) 10 ml IV BID [facility] Last Admin: 10/09/20 22:00 Dose: Not Given Documented by: Sodium Chloride (Sodium Chloride 0.9% 10 Ml Flush Syringe) 10 ml IV PRN PRN PRN Reason: LINE FLUSH Review of Systems - Review of Systems All systems: negative (10 Systems reviewed and negative except as mentioned ab ove in the history of present illness) Exam - Constitutional Vital Signs: Temp Pulse Resp BP Pulse Ox 97.7 F 71 18 171/96 96 10/10/20 04:52 10/10/20 04:52 10/10/20 04:52 10/10/20 04:52 10/10/20 04:52 General appearance: no acute distress - EENT Eyes: EOM intact ENT: hearing intact - Neck Neck: supple - Respiratory Respiratory effort: normal - Cardiovascular Rhythm: regular - Gastrointestinal General gastrointestinal: Present: soft, tender (Diffuse, though she reports worst in the left lower quadrant), normal bowel sounds - Integumentary Integumentary: Present: dry - Musculoskeletal Musculoskeletal: normal - Neurologic Neurological: alert and oriented x3 - Psychiatric Psychiatric: appropriate mood/affect - Labs CBC & Chem 7: 10/10/20 05:15 10/10/20 05:15 Lab Results: Laboratory Results - last 24 hr 10/10/20 10/10/20 05:15 05:15 WBC 11.3 H RBC 4.95 Hgb 16.1 H Hct 46.9 H MCV 95 MCH 33 H MCHC 34 RDW 14.0 Plt Count 286 Lymph % (Auto) 14.7 [place] % (Auto) 8.5 H Eos % (Auto) 0.5 Baso % (Auto) 0.6 Lymph # (Auto) 1.6 [place] # (Auto) 1.0 H Eos # (Auto) 0.1 Baso # (Auto) 0.1 Seg Neutrophils % 75.7 H Seg Neutrophils # 8.5 H Chloride 108.0 H Carbon Dioxide 22 Anion Gap 15 BUN 10 Glucose 122 H Calcium 8.5 Magnesium 2.00 Assessment and Plan Given the history above as well as CT scan findings here concerning for possible colon malignancy. Therefore patient requires colonoscopy for further evaluation. Try to provide her with a colon prep however she reports cannot take it Therefore, also tried to give enemas she refused concerned that the enemas will come right up and push her stool out her mouth Discussed with patient importance of having colonoscopy will determine what is going on, after discussion she is willing to try to proceed with a colonoscopy Will need to provide patient with enemas which will hopefully provide enough colonic lines to be able to reach the lesion seen on the CAT scan I am coordinating with the endoscopy team to determine when her procedure can happen, hopefully will be able to be this afternoon, though they reported schedule is busy and it may not be able to happen until Tuesday Therefore we will keep patient n.p.o. and once have a time will be able to provide patient with tapwater enemas until clear and then proceed with attempted colonoscopy I will contact patient's nurse and Dr Luna once I am given a time/date for the procedure Differential diagnosis includes colon cancer, severe constipation, less likely inflammatory bowel disease extrinsic compression etc. - Patient Problems (1) Weight loss, non-intentional Current Visit: Yes Status: Acute (2) Abdominal pain Current Visit: Yes Status: Acute (3) Colon wall thickening Current Visit: Yes Status: Acute
[2020-10-10 08:52] LABS: BUN/Creatinine Ratio 17
[2020-10-10] MEDS: HEPARIN 5,000 UNIT/1 ML VIAL SUB-Q SCH ×2 (09:26→21:27)
[2020-10-10] MEDS: FAMOTIDINE 20 MG/2 ML INJ IV SCH ×2 (09:26→21:27)
--- NOTE | 2020-10-10 09:41 | Progress Note ---
Assessment and Plan 75 yo F with 1. enterocolitis 2. possible transverse colon mass Pt stable. Diffuse small bowel and cecal dilatation 2/2 enterocolitis and possible mass in transverse colon causing partial obstruction Plan: 1. NPO except ice chips 2. IVF 3. prn pain and nausea control 4. DVT ppx 5. OOB/ambulate 6. GI on board - cscope prep ordered last night but patient refused. Possible cscope today, will follow up. D/W Dr. Davidson. 7. continue empiric abx 8. Further surgical recommendations pending colonoscopy findings Thank you, please call with questions Evaluation and treatment of this patient was during the time of the national and state emergency arising from COVID19 coronavirus pandemic. Treatment and procedures performed meet the current and available best practice and guidelines for patient during the COVID pandemic. Subjective Date of service: 10/10/20 Narrative: Patient seen and examined. She states that she had a much more restful night. She feels her stomach is settling down. She had a very small bowel movement and passed flatus overnight. No nausea or vomiting. Patient was scheduled for possible colonoscopy today but refused to do her prep because she was afraid of nausea/vomiting. Objective Vital Signs - 12hr 10/09/20 10/10/20 23:56 04:52 Temperature 97.5 F L 97.7 F Pulse Rate 70 71 Respiratory 18 18 Rate Blood Pressure 176/87 171/96 O2 Sat by Pulse 96 96 Oximetry - General physical appearance Narrative Exam: Gen.: Awake, alert, oriented 3. No apparent distress ENT: Trachea midline. No lymphadenopathy. No scleral icterus or conjunctival pallor CV: S1, S2 present Respiratory: No audible wheezes Abdomen: Soft, nondistended, left-sided tenderness to palpationminimal. No rebound, rigidity, guarding Extremities: No clubbing, cyanosis, edema - Labs 10/10/20 05:15 10/10/20 05:15 Diabetes panel 10/10/20 Range/Units 05:15 Sodium 142 D (137-145) mmol/L Potassium 3.4 L (3.6-5.0) mmol/L Chloride 108.0 H (98-107) mmol/L Carbon Dioxide 22 (22-30) mmol/L BUN 10 (7-17) mg/dL Creatinine 0.6 (0.6-1.2) mg/dL Glucose 122 H (65-100) mg/dL Calcium 8.5 (8.4-10.2) mg/dL Calcium panel 10/10/20 Range/Units 05:15 Calcium 8.5 (8.4-10.2) mg/dL Pituitary panel 10/10/20 Range/Units 05:15 Sodium 142 D (137-145) mmol/L Potassium 3.4 L (3.6-5.0) mmol/L Chloride 108.0 H (98-107) mmol/L Carbon Dioxide 22 (22-30) mmol/L BUN 10 (7-17) mg/dL Creatinine 0.6 (0.6-1.2) mg/dL Glucose 122 H (65-100) mg/dL Calcium 8.5 (8.4-10.2) mg/dL Adrenal panel 10/10/20 Range/Units 05:15 Sodium 142 D (137-145) mmol/L Potassium 3.4 L (3.6-5.0) mmol/L Chloride 108.0 H (98-107) mmol/L Carbon Dioxide 22 (22-30) mmol/L BUN 10 (7-17) mg/dL Creatinine 0.6 (0.6-1.2) mg/dL Glucose 122 H (65-100) mg/dL Calcium 8.5 (8.4-10.2) mg/dL
--- NOTE | 2020-10-10 10:57 | Progress Note ---
Assessment and Plan Assessment and plan: --Hypokalemia; Current Visit: Yes Status: Acute, KCl IV 40 mEq , check magnesium Closely monitor electrolytes -- Acute gastritis Current Visit: Yes Status: Acute, Plan to address problem: Small bowel loops are dilated No signs of obstruction, N.p.o., IV fluids Pain medications supportive care IV Zosyn started empirically Surgery consulted CT abdomen and pelvis ; nonspecific mild small bowel dilation without transition point suspicious focal thickening of the transverse colon malignancy cannot be excluded Abdominal x-ray; Similar findings of probable enterocolitis Radiographic follow-up to resolution needed --Polycythemia due to hemoconcentration Current Visit: Yes Status: Acute Plan to address problem: IV Fluids , closely monitor -- Colon wall thickening Current Visit: Yes Status: Acute Plan to address problem: Transverse colon is thickened Malignancy to be ruled out GI evaluated the patient For colonoscopy today -- Hyponatremia Current Visit: Yes Status: Acute Plan to address problem: Mild\ IV fluids for now --Malnutrition Current Visit: Yes Status: Chronic Plan to address problem: Dietary supplements once she starts eating -- DVT prophylaxis Current Visit: Yes Status: Acute Plan to address problem: On heparin and GI prophylaxis Follow surgery and GI evaluation and recommendations Closely monitor the patient and adjust the management as needed Plan of care reviewed with the patient and her nurse History Interval history: Patient is scheduled for endoscopy N.p.o. status No new complaints Vital signs noted Hospitalist Physical - Constitutional Vitals: Temp Pulse Resp BP Pulse Ox 97.7 F 71 20 171/96 96 10/10/20 04:52 10/10/20 04:52 10/10/20 10:14 10/10/20 04:52 10/10/20 04:52 General appearance: Present: mild distress, well-nourished - EENT Eyes: Present: PERRL, EOM intact - Neck Neck: Present: supple, normal ROM - Respiratory Respiratory effort: normal Respiratory: bilateral: diminished, negative: rales, rhonchi, wheezing - Cardiovascular Rhythm: regular Heart Sounds: Present: S1 & S2 - Extremities Extremities: no ischemia, No edema - Abdominal General gastrointestinal: soft, non-tender, non-distended, normal bowel sounds - Integumentary Integumentary: Present: clear, warm - Psychiatric Psychiatric: appropriate mood/affect, cooperative - Neurologic Neurologic: CNII-XII intact, moves all extremities Results - Labs CBC & Chem 7: 10/10/20 05:15 10/10/20 05:15 Labs: Laboratory Last Values WBC 11.3 K/mm3 (4.5-11.0) H 10/10/20 05:15 RBC 4.95 M/mm3 (3.65-5.03) 10/10/20 05:15 Hgb 16.1 gm/dl (10.1-14.3) H 10/10/20 05:15 Hct 46.9 % (30.3-42.9) H 10/10/20 05:15 MCV 95 fl (79-97) 10/10/20 05:15 MCH 33 pg (28-32) H 10/10/20 05:15 MCHC 34 % (30-34) 10/10/20 05:15 RDW 14.0 % (13.2-15.2) 10/10/20 05:15 Plt Count 286 K/mm3 (140-440) 10/10/20 05:15 Lymph % (Auto) 14.7 % (13.4-35.0) 10/10/20 05:15 [place] % (Auto) 8.5 % (0.0-7.3) H 10/10/20 05:15 Eos % (Auto) 0.5 % (0.0-4.3) 10/10/20 05:15 Baso % (Auto) 0.6 % (0.0-1.8) 10/10/20 05:15 Lymph # (Auto) 1.6 K/mm3 (1.2-5.4) 10/10/20 05:15 [place] # (Auto) 1.0 K/mm3 (0.0-0.8) H 10/10/20 05:15 Eos # (Auto) 0.1 K/mm3 (0.0-0.4) 10/10/20 05:15 Baso # (Auto) 0.1 K/mm3 (0.0-0.1) 10/10/20 05:15 Seg Neutrophils % 75.7 % (40.0-70.0) H 10/10/20 05:15 Seg Neutrophils # 8.5 K/mm3 (1.8-7.7) H 10/10/20 05:15 Sodium 142 mmol/L (137-145) D 10/10/20 05:15 Potassium 3.4 mmol/L (3.6-5.0) L 10/10/20 05:15 Chloride 108.0 mmol/L (98-107) H 10/10/20 05:15 Carbon Dioxide 22 mmol/L (22-30) 10/10/20 05:15 Anion Gap 15 mmol/L 10/10/20 05:15 BUN 10 mg/dL (7-17) 10/10/20 05:15 Creatinine 0.6 mg/dL (0.6-1.2) 10/10/20 05:15 Estimated GFR > 60 ml/min 10/10/20 05:15 BUN/Creatinine Ratio 17 % 10/10/20 05:15 Glucose 122 mg/dL (65-100) H 10/10/20 05:15 Hemoglobin A1c 5.2 % (4-6) 10/09/20 07:09 Lactic Acid 1.00 mmol/L (0.7-2.0) 10/08/20 16:30 Calcium 8.5 mg/dL (8.4-10.2) 10/10/20 05:15 Magnesium 2.00 mg/dL (1.7-2.3) 10/10/20 05:15 Total Bilirubin 0.80 mg/dL (0.1-1.2) 10/09/20 07:09 AST 11 units/L (5-40) 10/09/20 07:09 ALT 11 units/L (7-56) 10/09/20 07:09 Alkaline Phosphatase 54 units/L (35-129) 10/09/20 07:09 Total Protein 5.3 g/dL (6.3-8.2) L 10/09/20 07:09 Albumin 3.3 g/dL (3.9-5) L 10/09/20 07:09 Albumin/Globulin Ratio 1.7 % 10/09/20 07:09 Lipase 11 units/L (13-60) L 10/08/20 13:34 Urine Color Belinda (Yellow) 10/09/20 00:10 Urine Turbidity Clear (Clear) 10/09/20 00:10 Urine pH 5.0 (5.0-7.0) 10/09/20 00:10 Ur Specific [place] 1.060 (1.003-1.030) H 10/09/20 00:10 Urine Protein 30 mg/dl mg/dL (Negative) 10/09/20 00:10 Urine Glucose (UA) Neg mg/dL (Negative) 10/09/20 00:10 Urine Ketones 80 mg/dL (Negative) 10/09/20 00:10 Urine Blood Neg (Negative) 10/09/20 00:10 Urine Nitrite Neg (Negative) 10/09/20 00:10 Urine Bilirubin Neg (Negative) 10/09/20 00:10 Urine Urobilinogen 4.0 mg/dL (<2.0) 10/09/20 00:10 Ur Leukocyte Esterase Neg (Negative) 10/09/20 00:10 Urine WBC (Auto) 9.0 /HPF (0.0-6.0) H 10/09/20 00:10 Urine RBC (Auto) 3.0 /HPF (0.0-6.0) 10/09/20 00:10 U Epithel Cells (Auto) 1.0 /HPF (0-13.0) 10/09/20 00:10 Urine Mucus Few /HPF 10/09/20 00:10 Abel/IV: Voiding Method Toilet Active Medications - Current Medications Current Medications: Generic Name Dose Route Start Last Admin Trade Name Freq PRN Reason Stop Dose Admin Acetaminophen 650 mg 10/08/20 21:53 Acetaminophen 325 Mg Tab PO Q4H PRN Pain MILD(1-3)/Fever >100.5/[place] Famotidine 20 mg 10/08/20 22:00 10/10/20 09:26 Famotidine 20 Mg/2 Ml Inj IV 20 mg BID CAM Administration Heparin Sodium (Porcine) 5,000 unit 10/08/20 22:00 10/10/20 09:26 Heparin 5,000 Unit/1 Ml Vial SUB-Q 5,000 unit Q12HR CAM Administration Hydromorphone HCl 0.5 mg 10/08/20 21:46 Hydromorphone 1 Mg/1 Ml Inj IV Q3H PRN Pain , Severe (7-10) Piperacillin Sod/Tazobactam Sod 4.5 gm in 100 mls @ 200 mls/hr 10/09/20 06:00 10/10/20 06:57 Zosyn/Ns 4.5gm/100ml IV 200 mls/hr Q8HR CAM Administration Protocol Potassium Chloride/Dextrose/Sod Cl 20 meq in 1,000 mls @ 100 mls/hr 10/09/20 23:45 10/10/20 01:15 D5w/Ns W/Kcl 20meq IV 100 mls/hr DIRECT CAM Administration Levothyroxine Sodium 50 mcg 10/10/20 06:00 10/10/20 06:50 Levothyroxine 50 Mcg Tab PO Not Given DAILY@0600 CAM Morphine Sulfate 2 mg 10/08/20 21:46 Morphine 2 Mg/1 Ml Inj IV Q4H PRN Pain, Moderate (4-6) Ondansetron HCl 4 mg 10/08/20 21:53 10/10/20 06:56 Ondansetron 4 Mg/2 Ml Inj IV 4 mg Q8H PRN Administration Nausea And Vomiting Sodium Chloride 10 ml 10/08/20 22:00 10/10/20 09:26 Sodium Chloride 0.9% 10 Ml Flush Syringe IV 10 ml BID CAM Administration Sodium Chloride 10 ml 10/08/20 21:46 Sodium Chloride 0.9% 10 Ml Flush Syringe IV PRN PRN LINE FLUSH
[2020-10-10] MEDS ORDERED: ONDANSETRON 4 MG/2 ML INJ IV NR (11:17)
[2020-10-10] MEDS ORDERED: SODIUM CHLORIDE 0.9% 1000 ML 1,000 ML IV SCH (12:00)
[2020-10-10] MEDS ORDERED: SODIUM CHLORIDE 0.9% 1000 ML 1,000 ML ONE (12:48)
--- NOTE | 2020-10-10 12:58 | Anesthesia Consultation ---
Anesthesia Consult and Med Hx Date of service: 10/10/20 - Airway Anesthetic Teeth Evaluation: Good (Dental implant- upper full plate) ROM Head & Neck: Adequate Mental/Hyoid Distance: Adequate Mallampati Class: Class I - Pulmonary Exam CTA: Yes - Pre-Operative Health Status ASA Pre-Surgery Classification: ASA2 Proposed Anesthetic Plan: MAC - Pulmonary Hx Smoking: Yes Hx Asthma: No Hx Respiratory Symptoms: No SOB: No COPD: No Hx Sleep Apnea: No - Cardiovascular System Hx Hypertension: Yes Hx Heart Attack/AMI: No Hx Angina: No - Central Nervous System Hx Neuromuscular Disorder: No Hx Seizures: No Hx Psychiatric Problems: No - Gastrointestinal Hx Gastroesophageal Reflux Disease: No - Endocrine Hx Renal Disease: No Hx Liver Disease: No Hx Insulin Dependent Diabetes: No Hx Non-Insulin Dependent Diabetes: No Hx Hypothyroidism: No - Hematic Hx Anemia: No Hx Sickle Cell Disease: No - Other Systems Hx Alcohol Use: Yes Hx Obesity: No - Additional Comments Anesthesia Medical History Comments: Patient denied previous anesthesia complications
[2020-10-10] MEDS ORDERED: propofoL 200 MG/20 ML VIAL IV ONE (12:59)
--- NOTE | 2020-10-10 12:59 | Anesthesia Day of Surgery ---
Anesthesia Day of Surgery - Day of Surgery Patient Examined: Yes Patient H&P Reviewed: Yes Patient is NPO: Yes Beta Blockers: No Cardiac Clearance: No Pulmonary Clearance: No Deric's Test: N/A
[2020-10-10] MEDS ORDERED: LIDOCAINE MPF (2%) 20 MG/1 ML VIAL 5 ML ONE (13:01)
--- NOTE | 2020-10-10 13:30 | Operative Report ---
Operative Report Operative Report: DOS: 10/10/20 SURGEON: Ramon Davidson MD COLONOSCOPY with biopsy and tattoo REPORT PREOPERATIVE AND POSTOPERATIVE DIAGNOSIS: Abnormal CAT scan of the colon, weight loss, abdominal pain DESCRIPTION OF PROCEDURE: The colonoscope was passed to the transverse colon and could not be advanced further due to colon massAt the end of procedure, the scope was cleaned using normal technique. Vital signs monitored continuously throughout. SEDATION: Provided by Anesthesiology Services. Quality of the prep was very poor COMPLICATIONS: None. ESTIMATED BLOOD LOSS: 5 cc FINDINGS: * Obstructing colon mass seen in the transverse colon corresponding with the finding on the CAT scan. Could not advance the scope beyond this lesion. It appeared to take up approximately 75% of the circumference of the lumen but was causing significant edema and therefore causing luminal narrowing and could not advance the scope beyond this. Cold forceps used to obtain biopsies of the lesion, 3 cc of spot ink were used to tattoo the lesion * Large circumferential malignant appearing ulcerated and oozing mass seen in the rectum starting from approximately 4 cm from the anal verge proceeding proximally for about 5 cm. 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 I cannot rule out small medium or large polyps in the visualized portion of the colon. Was unable to visualize proximal to the transverse colon mass to rule out other lesions * Given the nearly obstructing nature of the transverse colon mass patient will require surgical intervention. She additionally will require surgery for the rectal mass as well * Once she is postoperative and healed from her surgery she will require repeat colonoscopy to ensure no other lesions in the portions of the colon that were unable to be visualized GI will sign off, plan of care per surgery whom I informed of the colonoscopy results. Please call us back if we can be of any further assistance
--- NOTE | 2020-10-10 16:10 | Event Note ---
Date: 10/10/20 Cscope results reviewed with Dr. Davidson. Patient with malignant appearing near obstructing mass of transverse colon that could not be traversed with colonoscope. Also with syncronous circumfrential malignant appearing rectal lesion. Spoke with patient in detail about the results and discussed my recommendations for transfer to facility with colorectal surgery to address both lesions. I do not recommend discharge and outpatient follow up due to near obstructing nature of transverse colon mass. She understands and is agreeable. Transfer to [place] [facility] initiated. I also discussed with patient's partner at her request and all questions answered.
--- NOTE | 2020-10-10 16:59 | Post Anesthesia Evaluation ---
- Post Anesthesia Evaluation Patient Participated: Yes Airway Patent: Yes Stable Respiratory Function: Yes Nausea/Vomiting: No Temp > 96.8F: Yes Pain Manageable: Yes Adequeate Hydration: Yes Anesthesia Complications: No Block Receding Appropriately: Not Applicable Patient on Ventilator: No
--- NOTE | 2020-10-10 17:56 | Discharge Summary ---
Providers - Providers Date of Admission: 10/09/20 16:15 Date of discharge: 10/13/20 Attending physician: MARCUS AUSTIN 10/08/20 17:42 Consult to Physician [CONS] Stat Comment: Consulting Provider: ANN SCHUMACHER Physician Instructions: Reason For Exam: Abdominal pain, dilated small bowel loops. 10/09/20 12:39 Consult to Physician [CONS] Routine Comment: Consulting Provider: TRAN DUMONT Physician Instructions: Reason For Exam: Enterocolitis/ constipation/ Primary care physician: URBAN PLANNER Hospitalization Reason for admission: Abdominal pain/vomiting of 2 weeks Condition: Serious Pertinent studies: Colonoscopy with biopsy CT abdomen and pelvis ; nonspecific mild small bowel dilation without transition point suspicious focal thickening of the transverse colon malignancy cannot be excluded Abdominal x-ray; Similar findings of probable enterocolitis Radiographic follow-up to resolution needed Procedures: Colonoscopy with biopsy 10/10/2020 FINDINGS: * Obstructing colon mass seen in the transverse colon corresponding with the finding on the CAT scan. Could not advance the scope beyond this lesion. It appeared to take up approximately 75% of the circumference of the lumen but was causing significant edema and therefore causing luminal narrowing and could not advance the scope beyond this. Cold forceps used to obtain biopsies of the lesion, 3 cc of spot ink were used to tattoo the lesion * Large circumferential malignant appearing ulcerated and oozing mass seen in the rectum starting from approximately 4 cm from the anal verge proceeding proximally for about 5 cm. 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 I cannot rule out small medium or large polyps in the visualized portion of the colon. Was unable to visualize proximal to the transverse colon mass to rule out other lesions * Given the nearly obstructing nature of the transverse colon mass patient will require surgical intervention. She additionally will require surgery for the rectal mass as well * Once she is postoperative and healed from her surgery she will require repeat colonoscopy to ensure no other lesions in the portions of the colon that were unable to be visualized GI and surgery has evaluated the patient and recommend transfer to [facility] to the service of Dr. Raymond colorectal surgeon for further evaluation And management. Dr. Stuart OFWLER has initiated the transfer. Awaiting call from [facility] course: 75-year-old female patient was admitted through emergency room with intractable nausea vomiting and abdominal pain CT scan in the emergency room is consistent with abnormal findings colonic thickening of transverse colon. Patient also had constipation Evaluated by general surgery and later GI and patient underwent colonoscopy with biopsies which revealed 2 synchronous colon cancers 1 in transverse colon And the other one in the rectum. Biopsies were done, both surgeon and GI recommended transfer to colorectal surgeon in [facility] Dr. Mandi Davidson discussed with Dr. Raymond who accepted the patient ,for further evaluation and management, and initiated the transfer process ,awaiting callback. I called the transfer center on 10/11/2020 and discussed about the transfer, they informed me that they do not have beds and would call back when bed is available. Awaiting callback from transfer center. Discharge and transfer the patient to different hospital to the service of colorectal surgeon for further evaluation and management Final diagnosis; --Transverse colon mass/malignancy and Rectal mass/malignancy On colonoscopy biopsies done pending report Dr. Stuart FOWLER has discussed with Dr. Raymond colorectal surgeon For possible transfer to [facility] for further evaluation and management Initiated the transfer process awaiting callback --Hypokalemia; Current Visit: Yes Status: Acute, KCl IV 40 mEq , check magnesium Closely monitor electrolytes -- Acute gastritis Current Visit: Yes Status: Acute, Small bowel loops are dilated GI and surgeon evaluated the patient Patient underwent colonoscopy and biopsy -- Hyponatremia Current Visit: Yes Status: Acute Mild improvement continue IV fluids --Malnutrition Current Visit: Yes Status: Chronic Plan to address problem: Dietary supplements once she starts eating -- DVT prophylaxis Current Visit: Yes Status: Acute Plan to address problem: On heparin and GI prophylaxis Continue current management Initiated transfer to [facility] under the care of surgeon Dr. Raymond Awaiting callback when beds are available [facility]: [facility] Final Discharge Diagnosis (Prints w/discharge instructions): Transverse colon mass possible cancer. Rectal mass possible cancer. Acute gastritis. Hypokalemia. Colon wall thickening. Hyponatremia. Malnutrition Time spent for discharge: 35 min Core Measure Documentation - Palliative Care Palliative Care/ Comfort Measures: Not Applicable - Core Measures Any of the following diagnoses?: none Exam - Constitutional Vitals: Temp Pulse Resp BP Pulse Ox 97.5 F L 62 20 155/76 97 10/10/20 13:35 10/10/20 15:24 10/10/20 15:24 10/10/20 15:24 10/10/20 15:24 General appearance: Present: mild distress, well-nourished - EENT Eyes: Present: PERRL, EOM intact - Neck Neck: Present: supple, normal ROM - Respiratory Respiratory effort: normal Respiratory: bilateral: diminished, negative: rales, rhonchi, wheezing - Cardiovascular Rhythm: regular Heart Sounds: Present: S1 & S2 - Extremities Extremities: no ischemia, No edema - Abdominal General gastrointestinal: Present: soft, non-tender, non-distended, normal bowel sounds - Integumentary Integumentary: Present: clear, warm - Musculoskeletal Musculoskeletal: generalized weakness - Psychiatric Psychiatric: appropriate mood/affect, cooperative - Neurologic Neurologic: CNII-XII intact, moves all extremities Plan Activity: advance as tolerated, fall precautions Diet: other (npo) Additional Instructions: Transfer to [facility] for further evaluation and management by colorectal surgeon Dr. Raymond Follow up with: PRIMARY CAREMD [Primary Care Provider] - 3-5 Days
--- NOTE | 2020-10-10 19:30 | Event Note ---
Date: 10/10/20 Surgeon and GI Stuart Simon recommended the patient to be transferred to [facility] for further evaluation and management by Colorectal surgeon Dr. Raymond. Dr. Davidson initiated the transfer process and informed me that transfer center from [facility] would contact me Regarding transfer, I did not receive any 7:30 PM. I will inform covering hospitalist to be on the look out for this call.
[2020-10-11] MEDS: PIPERACIL/TAZOBACTA 4.5/NS 100 4.5 GM/100 ML VIAL IV SCH ×4 (00:05→22:00)
[2020-10-11] MEDS: ONDANSETRON 4 MG/2 ML INJ IV PRN ×3 (06:09→22:43)
--- NOTE | 2020-10-11 08:27 | Event Note ---
Date: 10/11/20 I called [facility] control/transfer center at [phone] and discussed with bed control nurse Ms. Vivas regarding the transfer of Patient Ms. Pito Mcmahon to see colorectal surgeon Dr. Raymond, to be admitted to hospitalist service. Initiated by Dr. Stuart FOWLER, the bed control nurse Informed me that there are no beds available at this point, they would call back when the bed is available, they have my phone number. I informed Dr. Luna surgeon and Dr. Stuart Diaz As well as the patient and her nurse Ms. Villa
[2020-10-11] MEDS: LEVOTHYROXINE 50 MCG TAB PO SCH (09:01)
[2020-10-11] MEDS: FAMOTIDINE 20 MG/2 ML INJ IV SCH ×2 (09:04→22:43)
[2020-10-11] MEDS: HEPARIN 5,000 UNIT/1 ML VIAL SUB-Q SCH ×2 (09:04→22:43)
--- NOTE | 2020-10-11 15:32 | Progress Note ---
Assessment and Plan Assessment and plan: --Transverse colon mass/malignancy and Rectal mass/malignancy biopsies done pending report Dr. Stuart FOWLER has discussed with Dr. Raymond colorectal surgeon For possible transfer to [facility]. waiting for callback from [facility] I called back again this morning, no beds available Informed that they would call back when the bed is available for the patient Dr. Davidson and Dr. Luna are made aware --Hypokalemia; Current Visit: Yes Status: Acute, Replenish and monitor electrolytes -- Acute gastritis Current Visit: Yes Status: Acute, Secondary to obstructing colon cancer Patient is tolerating clear liquids -- Colon wall thickening Current Visit: Yes Status: Acute Colonoscopy positive for transverse colon mass Rectal mass/malignancy -- Hyponatremia/resolved Current Visit: Yes Status: Acute Continue IV fluids and supportive care --Moderate malnutrition Current Visit: Yes Status: Chronic Plan to address problem: Dietary supplements once she starts eating -- DVT prophylaxis Current Visit: Yes Status: Acute Plan to address problem: On heparin and GI prophylaxis Awaiting response from [facility] To transfer the patient for further evaluation management by colorectal surgeon Dr. Raymond. Plan of care reviewed with the patient and her nurse as well as surgeon History Interval history: I have seen and examined the patient at the bedside this morning Patient's chart and medications reviewed Patient feels slightly better tolerating clear liquids Mild abdominal discomfort and nausea Vital signs noted Hospitalist Physical - Constitutional Vitals: Temp Pulse Resp BP Pulse Ox 97.5 F L 60 20 164/66 96 10/11/20 11:05 10/11/20 11:05 10/11/20 11:05 10/11/20 11:05 10/11/20 11:05 General appearance: Present: mild distress, well-nourished - EENT Eyes: Present: PERRL, EOM intact - Neck Neck: Present: supple, normal ROM - Respiratory Respiratory effort: normal Respiratory: bilateral: diminished, rales, negative: rhonchi, wheezing - Cardiovascular Rhythm: regular Heart Sounds: Present: S1 & S2 - Extremities Extremities: no ischemia, No edema - Abdominal General gastrointestinal: soft, non-tender, distended (Mild no guarding no rigidity) - Integumentary Integumentary: Present: clear, warm - Psychiatric Psychiatric: appropriate mood/affect, cooperative - Neurologic Neurologic: CNII-XII intact, moves all extremities Results - Labs CBC & Chem 7: 10/10/20 05:15 10/10/20 05:15 Labs: Laboratory Last Values WBC 11.3 K/mm3 (4.5-11.0) H 10/10/20 05:15 RBC 4.95 M/mm3 (3.65-5.03) 10/10/20 05:15 Hgb 16.1 gm/dl (10.1-14.3) H 10/10/20 05:15 Hct 46.9 % (30.3-42.9) H 10/10/20 05:15 MCV 95 fl (79-97) 10/10/20 05:15 MCH 33 pg (28-32) H 10/10/20 05:15 MCHC 34 % (30-34) 10/10/20 05:15 RDW 14.0 % (13.2-15.2) 10/10/20 05:15 Plt Count 286 K/mm3 (140-440) 10/10/20 05:15 Lymph % (Auto) 14.7 % (13.4-35.0) 10/10/20 05:15 [place] % (Auto) 8.5 % (0.0-7.3) H 10/10/20 05:15 Eos % (Auto) 0.5 % (0.0-4.3) 10/10/20 05:15 Baso % (Auto) 0.6 % (0.0-1.8) 10/10/20 05:15 Lymph # (Auto) 1.6 K/mm3 (1.2-5.4) 10/10/20 05:15 [place] # (Auto) 1.0 K/mm3 (0.0-0.8) H 10/10/20 05:15 Eos # (Auto) 0.1 K/mm3 (0.0-0.4) 10/10/20 05:15 Baso # (Auto) 0.1 K/mm3 (0.0-0.1) 10/10/20 05:15 Seg Neutrophils % 75.7 % (40.0-70.0) H 10/10/20 05:15 Seg Neutrophils # 8.5 K/mm3 (1.8-7.7) H 10/10/20 05:15 Sodium 142 mmol/L (137-145) D 10/10/20 05:15 Potassium 3.4 mmol/L (3.6-5.0) L 10/10/20 05:15 Chloride 108.0 mmol/L (98-107) H 10/10/20 05:15 Carbon Dioxide 22 mmol/L (22-30) 10/10/20 05:15 Anion Gap 15 mmol/L 10/10/20 05:15 BUN 10 mg/dL (7-17) 10/10/20 05:15 Creatinine 0.6 mg/dL (0.6-1.2) 10/10/20 05:15 Estimated GFR > 60 ml/min 10/10/20 05:15 BUN/Creatinine Ratio 17 % 10/10/20 05:15 Glucose 122 mg/dL (65-100) H 10/10/20 05:15 Hemoglobin A1c 5.2 % (4-6) 10/09/20 07:09 Lactic Acid 1.00 mmol/L (0.7-2.0) 10/08/20 16:30 Calcium 8.5 mg/dL (8.4-10.2) 10/10/20 05:15 Magnesium 2.00 mg/dL (1.7-2.3) 10/10/20 05:15 Total Bilirubin 0.80 mg/dL (0.1-1.2) 10/09/20 07:09 AST 11 units/L (5-40) 10/09/20 07:09 ALT 11 units/L (7-56) 10/09/20 07:09 Alkaline Phosphatase 54 units/L (35-129) 10/09/20 07:09 Total Protein 5.3 g/dL (6.3-8.2) L 10/09/20 07:09 Albumin 3.3 g/dL (3.9-5) L 10/09/20 07:09 Albumin/Globulin Ratio 1.7 % 10/09/20 07:09 Lipase 11 units/L (13-60) L 10/08/20 13:34 Urine Color Belinda (Yellow) 10/09/20 00:10 Urine Turbidity Clear (Clear) 10/09/20 00:10 Urine pH 5.0 (5.0-7.0) 10/09/20 00:10 Ur Specific [place] 1.060 (1.003-1.030) H 10/09/20 00:10 Urine Protein 30 mg/dl mg/dL (Negative) 10/09/20 00:10 Urine Glucose (UA) Neg mg/dL (Negative) 10/09/20 00:10 Urine Ketones 80 mg/dL (Negative) 10/09/20 00:10 Urine Blood Neg (Negative) 10/09/20 00:10 Urine Nitrite Neg (Negative) 10/09/20 00:10 Urine Bilirubin Neg (Negative) 10/09/20 00:10 Urine Urobilinogen 4.0 mg/dL (<2.0) 10/09/20 00:10 Ur Leukocyte Esterase Neg (Negative) 10/09/20 00:10 Urine WBC (Auto) 9.0 /HPF (0.0-6.0) H 10/09/20 00:10 Urine RBC (Auto) 3.0 /HPF (0.0-6.0) 10/09/20 00:10 U Epithel Cells (Auto) 1.0 /HPF (0-13.0) 10/09/20 00:10 Urine Mucus Few /HPF 10/09/20 00:10 Microbiology: Microbiology 10/09/20 00:10 Urine,Clean Catch Urine Culture - Preliminary NO GROWTH AFTER 24 HOURS Abel/IV: Voiding Method Toilet Active Medications - Current Medications Current Medications: Generic Name Dose Route Start Last Admin Trade Name Freq PRN Reason Stop Dose Admin Acetaminophen 650 mg 10/08/20 21:53 Acetaminophen 325 Mg Tab PO Q4H PRN Pain MILD(1-3)/Fever >100.5/[place] Famotidine 20 mg 10/08/20 22:00 10/11/20 09:04 Famotidine 20 Mg/2 Ml Inj IV 20 mg BID CAM Administration Heparin Sodium (Porcine) 5,000 unit 10/08/20 22:00 10/11/20 09:04 Heparin 5,000 Unit/1 Ml Vial SUB-Q 5,000 unit Q12HR CAM Administration Hydromorphone HCl 0.5 mg 10/08/20 21:46 Hydromorphone 1 Mg/1 Ml Inj IV Q3H PRN Pain , Severe (7-10) Piperacillin Sod/Tazobactam Sod 4.5 gm in 100 mls @ 200 mls/hr 10/09/20 06:00 10/11/20 14:00 Zosyn/Ns 4.5gm/100ml IV 200 mls/hr Q8HR CAM Administration Protocol Potassium Chloride/Dextrose/Sod Cl 20 meq in 1,000 mls @ 100 mls/hr 10/09/20 23:45 10/10/20 11:43 D5w/Ns W/Kcl 20meq IV 100 mls/hr DIRECT CAM Administration Levothyroxine Sodium 50 mcg 10/10/20 06:00 10/11/20 09:01 Levothyroxine 50 Mcg Tab PO Not Given DAILY@0600 CAM Morphine Sulfate 2 mg 10/08/20 21:46 Morphine 2 Mg/1 Ml Inj IV Q4H PRN Pain, Moderate (4-6) Ondansetron HCl 4 mg 10/08/20 21:53 10/11/20 14:00 Ondansetron 4 Mg/2 Ml Inj IV 4 mg Q8H PRN Administration Nausea And Vomiting Sodium Chloride 10 ml 10/08/20 22:00 10/11/20 09:05 Sodium Chloride 0.9% 10 Ml Flush Syringe IV 10 ml BID CAM Administration Sodium Chloride 10 ml 10/08/20 21:46 Sodium Chloride 0.9% 10 Ml Flush Syringe IV PRN PRN LINE FLUSH
[2020-10-11] MEDS: D5NS W/KCL 20 MEQ 20 MEQ/1,000 ML BAG IV SCH (18:34)
[2020-10-12] MEDS: ONDANSETRON 4 MG/2 ML INJ IV PRN (06:11)
[2020-10-12] MEDS: FAMOTIDINE 20 MG/2 ML INJ IV SCH ×2 (11:03→22:38)
[2020-10-12] MEDS: HEPARIN 5,000 UNIT/1 ML VIAL SUB-Q SCH ×2 (11:03→22:38)
--- NOTE | 2020-10-12 11:33 | Progress Note ---
Assessment and Plan Assessment and plan: Have not received any call from [facility] with bed available till this morning --Transverse colon mass/malignancy and Rectal mass/malignancy EGD with biopsies ,pending report Dr. Stuart FOWLER has discussed with Dr. Raymond colorectal surgeon and initiated transfer process to [facility] I personally called the transfer center 10/11/2020, no beds available waiting for callback from [facility] Did not receive any calls till this morning Surgeon and GI are aware --Hypokalemia; Current Visit: Yes Status: Acute, Replenish and monitor electrolytes -- Acute gastritis Current Visit: Yes Status: Acute, Secondary to obstructing colon cancer Patient is tolerating clear liquids -- Colon wall thickening Current Visit: Yes Status: Acute Colonoscopy positive for transverse colon mass Rectal mass/malignancy -- Hyponatremia/resolved Current Visit: Yes Status: Acute Continue IV fluids and supportive care --Moderate malnutrition Current Visit: Yes Status: Chronic Plan to address problem: Dietary supplements once she starts eating -- DVT prophylaxis Current Visit: Yes Status: Acute Plan to address problem: On heparin and GI prophylaxis Awaiting response from [facility] To transfer the patient for further evaluation management by colorectal surgeon Dr. Raymond. Plan of care reviewed with the patient and her nurse 10/12/2020; continue clear liquids, mild nausea Zofran/Phenergan as needed Supportive care, awaiting callback from [facility] with bed availability History Interval history: I have seen and examined the patient this morning Patient feels slightly better very concerned about her transfer and possible surgery Mild nausea no vomitings Tolerating clear liquids Vital signs noted Hospitalist Physical - Constitutional Vitals: Temp Pulse Resp BP Pulse Ox 97.6 F 60 18 169/79 95 10/12/20 07:20 10/12/20 07:20 10/12/20 07:20 10/12/20 07:20 10/12/20 07:20 General appearance: Present: no acute distress, well-nourished, other (Anxious) - EENT Eyes: Present: PERRL, EOM intact - Neck Neck: Present: supple, normal ROM - Respiratory Respiratory effort: normal Respiratory: bilateral: diminished, negative: rales, rhonchi, wheezing - Cardiovascular Rhythm: regular Heart Sounds: Present: S1 & S2 - Extremities Extremities: no ischemia, No edema - Abdominal General gastrointestinal: soft, non-tender, distended (Mild) - Integumentary Integumentary: Present: clear, warm - Psychiatric Psychiatric: appropriate mood/affect, other - Neurologic Neurologic: moves all extremities (Anxious) Results - Labs CBC & Chem 7: 10/10/20 05:15 10/10/20 05:15 Labs: Laboratory Last Values WBC 11.3 K/mm3 (4.5-11.0) H 10/10/20 05:15 RBC 4.95 M/mm3 (3.65-5.03) 10/10/20 05:15 Hgb 16.1 gm/dl (10.1-14.3) H 10/10/20 05:15 Hct 46.9 % (30.3-42.9) H 10/10/20 05:15 MCV 95 fl (79-97) 10/10/20 05:15 MCH 33 pg (28-32) H 10/10/20 05:15 MCHC 34 % (30-34) 10/10/20 05:15 RDW 14.0 % (13.2-15.2) 10/10/20 05:15 Plt Count 286 K/mm3 (140-440) 10/10/20 05:15 Lymph % (Auto) 14.7 % (13.4-35.0) 10/10/20 05:15 [place] % (Auto) 8.5 % (0.0-7.3) H 10/10/20 05:15 Eos % (Auto) 0.5 % (0.0-4.3) 10/10/20 05:15 Baso % (Auto) 0.6 % (0.0-1.8) 10/10/20 05:15 Lymph # (Auto) 1.6 K/mm3 (1.2-5.4) 10/10/20 05:15 [place] # (Auto) 1.0 K/mm3 (0.0-0.8) H 10/10/20 05:15 Eos # (Auto) 0.1 K/mm3 (0.0-0.4) 10/10/20 05:15 Baso # (Auto) 0.1 K/mm3 (0.0-0.1) 10/10/20 05:15 Seg Neutrophils % 75.7 % (40.0-70.0) H 10/10/20 05:15 Seg Neutrophils # 8.5 K/mm3 (1.8-7.7) H 10/10/20 05:15 Sodium 142 mmol/L (137-145) D 10/10/20 05:15 Potassium 3.4 mmol/L (3.6-5.0) L 10/10/20 05:15 Chloride 108.0 mmol/L (98-107) H 10/10/20 05:15 Carbon Dioxide 22 mmol/L (22-30) 10/10/20 05:15 Anion Gap 15 mmol/L 10/10/20 05:15 BUN 10 mg/dL (7-17) 10/10/20 05:15 Creatinine 0.6 mg/dL (0.6-1.2) 10/10/20 05:15 Estimated GFR > 60 ml/min 10/10/20 05:15 BUN/Creatinine Ratio 17 % 10/10/20 05:15 Glucose 122 mg/dL (65-100) H 10/10/20 05:15 Hemoglobin A1c 5.2 % (4-6) 10/09/20 07:09 Lactic Acid 1.00 mmol/L (0.7-2.0) 10/08/20 16:30 Calcium 8.5 mg/dL (8.4-10.2) 10/10/20 05:15 Magnesium 2.00 mg/dL (1.7-2.3) 10/10/20 05:15 Total Bilirubin 0.80 mg/dL (0.1-1.2) 10/09/20 07:09 AST 11 units/L (5-40) 10/09/20 07:09 ALT 11 units/L (7-56) 10/09/20 07:09 Alkaline Phosphatase 54 units/L (35-129) 10/09/20 07:09 Total Protein 5.3 g/dL (6.3-8.2) L 10/09/20 07:09 Albumin 3.3 g/dL (3.9-5) L 10/09/20 07:09 Albumin/Globulin Ratio 1.7 % 10/09/20 07:09 Lipase 11 units/L (13-60) L 10/08/20 13:34 Urine Color [place] (Yellow) 10/09/20 00:10 Urine Turbidity Clear (Clear) 10/09/20 00:10 Urine pH 5.0 (5.0-7.0) 10/09/20 00:10 Ur Specific [place] 1.060 (1.003-1.030) H 10/09/20 00:10 Urine Protein 30 mg/dl mg/dL (Negative) 10/09/20 00:10 Urine Glucose (UA) Neg mg/dL (Negative) 10/09/20 00:10 Urine Ketones 80 mg/dL (Negative) 10/09/20 00:10 Urine Blood Neg (Negative) 10/09/20 00:10 Urine Nitrite Neg (Negative) 10/09/20 00:10 Urine Bilirubin Neg (Negative) 10/09/20 00:10 Urine Urobilinogen 4.0 mg/dL (<2.0) 10/09/20 00:10 Ur Leukocyte Esterase Neg (Negative) 10/09/20 00:10 Urine WBC (Auto) 9.0 /HPF (0.0-6.0) H 10/09/20 00:10 Urine RBC (Auto) 3.0 /HPF (0.0-6.0) 10/09/20 00:10 U Epithel Cells (Auto) 1.0 /HPF (0-13.0) 10/09/20 00:10 Urine Mucus Few /HPF 10/09/20 00:10 Microbiology: Microbiology 10/09/20 00:10 Urine,Clean Catch Urine Culture - Preliminary NO GROWTH AFTER 24 HOURS Abel/IV: Voiding Method Toilet Active Medications - Current Medications Current Medications: Generic Name Dose Route Start Last Admin Trade Name Freq PRN Reason Stop Dose Admin Acetaminophen 650 mg 10/08/20 21:53 Acetaminophen 325 Mg Tab PO Q4H PRN Pain MILD(1-3)/Fever >100.5/[place] Famotidine 20 mg 10/08/20 22:00 10/12/20 11:03 Famotidine 20 Mg/2 Ml Inj IV 20 mg BID CAM Administration Heparin Sodium (Porcine) 5,000 unit 10/08/20 22:00 10/12/20 11:03 Heparin 5,000 Unit/1 Ml Vial SUB-Q 5,000 unit Q12HR CAM Administration Hydromorphone HCl 0.5 mg 10/08/20 21:46 Hydromorphone 1 Mg/1 Ml Inj IV Q3H PRN Pain , Severe (7-10) Piperacillin Sod/Tazobactam Sod 4.5 gm in 100 mls @ 200 mls/hr 10/09/20 06:00 10/11/20 22:00 Zosyn/Ns 4.5gm/100ml IV 200 mls/hr Q8HR CAM Administration Protocol Potassium Chloride/Dextrose/Sod Cl 20 meq in 1,000 mls @ 100 mls/hr 10/09/20 23:45 10/11/20 18:34 D5w/Ns W/Kcl 20meq IV 100 mls/hr DIRECT CAM Administration Levothyroxine Sodium 50 mcg 10/10/20 06:00 10/11/20 09:01 Levothyroxine 50 Mcg Tab PO Not Given DAILY@0600 CAM Morphine Sulfate 2 mg 10/08/20 21:46 Morphine 2 Mg/1 Ml Inj IV Q4H PRN Pain, Moderate (4-6) Ondansetron HCl 4 mg 10/08/20 21:53 10/12/20 06:11 Ondansetron 4 Mg/2 Ml Inj IV 4 mg Q8H PRN Administration Nausea And Vomiting Sodium Chloride 10 ml 10/08/20 22:00 10/12/20 11:05 Sodium Chloride 0.9% 10 Ml Flush Syringe IV 10 ml BID CAM Administration Sodium Chloride 10 ml 10/08/20 21:46 Sodium Chloride 0.9% 10 Ml Flush Syringe IV PRN PRN LINE FLUSH
[2020-10-12] MEDS: PIPERACIL/TAZOBACTA 4.5/NS 100 4.5 GM/100 ML VIAL IV SCH ×4 (15:13→22:45)
[2020-10-12] MEDS: LEVOTHYROXINE 50 MCG TAB PO SCH (20:31)
[2020-10-13] MEDS: PIPERACIL/TAZOBACTA 4.5/NS 100 4.5 GM/100 ML VIAL IV SCH ×2 (05:54→14:57)
[2020-10-13] MEDS: LEVOTHYROXINE 50 MCG TAB PO SCH (05:54)
[2020-10-13] MEDS: D5NS W/KCL 20 MEQ 20 MEQ/1,000 ML BAG IV SCH (06:22)
[2020-10-13] MEDS ORDERED: hydrALAZINE 20 MG/1 ML INJ IV PRN (09:30)
[2020-10-13] MEDS: FAMOTIDINE 20 MG/2 ML INJ IV SCH (09:44)
[2020-10-13] MEDS: HEPARIN 5,000 UNIT/1 ML VIAL SUB-Q SCH (10:00)
[2020-10-13 10:41] LABS: Basophils # (Auto) 0.1 K/mm3 (0.0-0.1); Basophils % (Auto) 0.5 % (0.0-1.8); Eosinophils # (Auto) 0.1 K/mm3 (0.0-0.4); Eosinophils % (Auto) 1.2 % (0.0-4.3); Hematocrit 47.5 % (30.3-42.9); Lymphocytes # (Auto) 2.1 K/mm3 (1.2-5.4); Lymphocytes % (Auto) 19.2 % (13.4-35.0); Mean Corpuscular HGB Conc 34 % (30-34); Mean Corpuscular Volume 94 fl (79-97); Monocytes # (Auto) 0.8 K/mm3 (0.0-0.8); Monocytes % (Auto) 7.3 % (0.0-7.3); Platelet Count 323 K/mm3 (140-440); Red Blood Count 5.03 M/mm3 (3.65-5.03); Red Cell Distribution Width 13.8 % (13.2-15.2)
[2020-10-13 11:02] LABS: Blood Urea Nitrogen 5 mg/dL (7-17); Calcium 8.7 mg/dL (8.4-10.2); Hemolysis Index 12
[2020-10-13 11:03] LABS: BUN/Creatinine Ratio 7
[2020-10-13] MEDS ORDERED: hydrALAZINE 25 MG TAB PO SCH (14:00)
--- NOTE | 2020-10-13 15:44 | Progress Note ---
Assessment and Plan Assessment and plan: I have not received any call from [facility] with bed availability till this morning --Transverse colon mass/malignancy and Rectal mass/malignancy EGD with biopsies ,pending report Dr. Stuart FOWLER has discussed with Dr. Raymond colorectal surgeon and initiated transfer process to [facility] I personally called the transfer center 10/11/2020, no beds available waiting for callback from [facility] Did not receive any calls till this morning Surgeon Dr. Luna and GI Dr. Davidson are aware --Hypokalemia; Current Visit: Yes Status: Acute, Replenish and monitor electrolytes -- Acute gastritis Current Visit: Yes Status: Acute, Secondary to obstructing colon cancer Patient is tolerating clear liquids -- Colon wall thickening Current Visit: Yes Status: Acute Colonoscopy positive for transverse colon mass Rectal mass/malignancy -- Hyponatremia/resolved Current Visit: Yes Status: Acute Continue IV fluids and supportive care --Moderate malnutrition Current Visit: Yes Status: Chronic Plan to address problem: Due to underlying disease process Supportive care -- DVT prophylaxis Current Visit: Yes Status: Acute Plan to address problem: On heparin and GI prophylaxis Awaiting response from [facility] center To transfer the patient for further evaluation management by colorectal surgeon Dr. Raymond. Plan of care reviewed with the patient and her nurse Brief history; patient with transverse colon and rectal cancer on colonoscopy status post biopsy Evaluated by surgeon and GI, Dr. Stuart FOWLER spoke with colorectal surgeon Dr. Raymond who accepted the patient However no beds available in [facility], they would call back when the bed is available for possible transfer 10/12/2020; continue clear liquids, mild nausea Zofran/Phenergan as needed Supportive care, awaiting callback from [facility] with bed availability 10/13/2020; continue current management, still awaiting transfer to a different hospital for evaluation And management by colorectal surgeon, follow surgeon and GI recommendations History Interval history: I have seen and examined the patient at the bedside this morning patient's chart and medications reviewed Patient with transverse colon and rectal cancer awaiting transfer to [facility] for further evaluation and management by colorectal surgeon Dr. Raymond. Patient complains of some nausea and abdominal pain Vital signs noted Hospitalist Physical - Constitutional Vitals: Temp Pulse Resp BP Pulse Ox 97.9 F 63 18 169/93 97 10/13/20 12:07 10/13/20 14:59 10/13/20 12:07 10/13/20 14:59 10/13/20 12:07 General appearance: Present: no acute distress, well-nourished, other (Anxious) - EENT Eyes: Present: PERRL, EOM intact - Neck Neck: Present: supple, normal ROM - Respiratory Respiratory effort: normal Respiratory: bilateral: diminished, negative: rales, rhonchi, wheezing - Cardiovascular Rhythm: regular Heart Sounds: Present: S1 & S2 - Extremities Extremities: no ischemia, No edema - Abdominal General gastrointestinal: soft, tender (Mild no guarding), non-distended (Mild distention) - Integumentary Integumentary: Present: clear, warm - Psychiatric Psychiatric: appropriate mood/affect, cooperative (Anxious) - Neurologic Neurologic: moves all extremities Results - Labs CBC & Chem 7: 10/13/20 10:13 10/13/20 10:13 Labs: Laboratory Last Values WBC 10.8 K/mm3 (4.5-11.0) 10/13/20 10:13 RBC 5.03 M/mm3 (3.65-5.03) 10/13/20 10:13 Hgb 16.0 gm/dl (10.1-14.3) H 10/13/20 10:13 Hct 47.5 % (30.3-42.9) H 10/13/20 10:13 MCV 94 fl (79-97) 10/13/20 10:13 MCH 32 pg (28-32) 10/13/20 10:13 MCHC 34 % (30-34) 10/13/20 10:13 RDW 13.8 % (13.2-15.2) 10/13/20 10:13 Plt Count 323 K/mm3 (140-440) 10/13/20 10:13 Lymph % (Auto) 19.2 % (13.4-35.0) 10/13/20 10:13 [place] % (Auto) 7.3 % (0.0-7.3) 10/13/20 10:13 Eos % (Auto) 1.2 % (0.0-4.3) 10/13/20 10:13 Baso % (Auto) 0.5 % (0.0-1.8) 10/13/20 10:13 Lymph # (Auto) 2.1 K/mm3 (1.2-5.4) 10/13/20 10:13 [place] # (Auto) 0.8 K/mm3 (0.0-0.8) 10/13/20 10:13 Eos # (Auto) 0.1 K/mm3 (0.0-0.4) 10/13/20 10:13 Baso # (Auto) 0.1 K/mm3 (0.0-0.1) 10/13/20 10:13 Seg Neutrophils % 71.8 % (40.0-70.0) H 10/13/20 10:13 Seg Neutrophils # 7.7 K/mm3 (1.8-7.7) 10/13/20 10:13 Sodium 140 mmol/L (137-145) 10/13/20 10:13 Potassium 3.4 mmol/L (3.6-5.0) L 10/13/20 10:13 Chloride 101.7 mmol/L (98-107) 10/13/20 10:13 Carbon Dioxide 28 mmol/L (22-30) 10/13/20 10:13 Anion Gap 14 mmol/L 10/13/20 10:13 BUN 5 mg/dL (7-17) L 10/13/20 10:13 Creatinine 0.7 mg/dL (0.6-1.2) 10/13/20 10:13 Estimated GFR > 60 ml/min 10/13/20 10:13 BUN/Creatinine Ratio 7 % 10/13/20 10:13 Glucose 109 mg/dL (65-100) H 10/13/20 10:13 Hemoglobin A1c 5.2 % (4-6) 10/09/20 07:09 Lactic Acid 1.00 mmol/L (0.7-2.0) 10/08/20 16:30 Calcium 8.7 mg/dL (8.4-10.2) 10/13/20 10:13 Magnesium 2.00 mg/dL (1.7-2.3) 10/10/20 05:15 Total Bilirubin 0.80 mg/dL (0.1-1.2) 10/09/20 07:09 AST 11 units/L (5-40) 10/09/20 07:09 ALT 11 units/L (7-56) 10/09/20 07:09 Alkaline Phosphatase 54 units/L (35-129) 10/09/20 07:09 Total Protein 5.3 g/dL (6.3-8.2) L 10/09/20 07:09 Albumin 3.3 g/dL (3.9-5) L 10/09/20 07:09 Albumin/Globulin Ratio 1.7 % 10/09/20 07:09 Lipase 11 units/L (13-60) L 10/08/20 13:34 Urine Color [place] (Yellow) 10/09/20 00:10 Urine Turbidity Clear (Clear) 10/09/20 00:10 Urine pH 5.0 (5.0-7.0) 10/09/20 00:10 Ur Specific [place] 1.060 (1.003-1.030) H 10/09/20 00:10 Urine Protein 30 mg/dl mg/dL (Negative) 10/09/20 00:10 Urine Glucose (UA) Neg mg/dL (Negative) 10/09/20 00:10 Urine Ketones 80 mg/dL (Negative) 10/09/20 00:10 Urine Blood Neg (Negative) 10/09/20 00:10 Urine Nitrite Neg (Negative) 10/09/20 00:10 Urine Bilirubin Neg (Negative) 10/09/20 00:10 Urine Urobilinogen 4.0 mg/dL (<2.0) 10/09/20 00:10 Ur Leukocyte Esterase Neg (Negative) 10/09/20 00:10 Urine WBC (Auto) 9.0 /HPF (0.0-6.0) H 10/09/20 00:10 Urine RBC (Auto) 3.0 /HPF (0.0-6.0) 10/09/20 00:10 U Epithel Cells (Auto) 1.0 /HPF (0-13.0) 10/09/20 00:10 Urine Mucus Few /HPF 10/09/20 00:10 Microbiology: Microbiology 10/09/20 00:10 Urine,Clean Catch Urine Culture - Final NO GROWTH AFTER 48 HOURS Abel/IV: Voiding Method Toilet Active Medications - Current Medications Current Medications: Generic Name Dose Route Start Last Admin Trade Name Freq PRN Reason Stop Dose Admin Acetaminophen 650 mg 10/08/20 21:53 Acetaminophen 325 Mg Tab PO Q4H PRN Pain MILD(1-3)/Fever >100.5/[place] Famotidine 20 mg 10/08/20 22:00 10/13/20 09:44 Famotidine 20 Mg/2 Ml Inj IV 20 mg BID CAM Administration Heparin Sodium (Porcine) 5,000 unit 10/08/20 22:00 10/13/20 10:00 Heparin 5,000 Unit/1 Ml Vial SUB-Q 5,000 unit Q12HR CAM Administration Hydralazine HCl 10 mg 10/13/20 09:30 Hydralazine 20 Mg/1 Ml Inj IV Q4H PRN Hypertension Hydralazine HCl 25 mg 10/13/20 14:00 10/13/20 14:59 Hydralazine 25 Mg Tab PO 25 mg Q8HR CAM Administration Hydromorphone HCl 0.5 mg 10/08/20 21:46 10/12/20 10:00 Hydromorphone 1 Mg/1 Ml Inj IV 0.5 mg Q3H PRN Administration Pain , Severe (7-10) Piperacillin Sod/Tazobactam Sod 4.5 gm in 100 mls @ 200 mls/hr 10/09/20 06:00 10/13/20 14:57 Zosyn/Ns 4.5gm/100ml IV 200 mls/hr Q8HR CAM Administration Protocol Potassium Chloride/Dextrose/Sod Cl 20 meq in 1,000 mls @ 100 mls/hr 10/09/20 23:45 10/13/20 06:22 D5w/Ns W/Kcl 20meq IV 100 mls/hr DIRECT CAM Administration Levothyroxine Sodium 50 mcg 10/10/20 06:00 10/13/20 05:54 Levothyroxine 50 Mcg Tab PO Not Given DAILY@0600 CAM Morphine Sulfate 2 mg 10/08/20 21:46 Morphine 2 Mg/1 Ml Inj IV Q4H PRN Pain, Moderate (4-6) Ondansetron HCl 4 mg 10/08/20 21:53 10/12/20 06:11 Ondansetron 4 Mg/2 Ml Inj IV 4 mg Q8H PRN Administration Nausea And Vomiting Sodium Chloride 10 ml 10/08/20 22:00 10/13/20 09:44 Sodium Chloride 0.9% 10 Ml Flush Syringe IV 10 ml BID CAM Administration Sodium Chloride 10 ml 10/08/20 21:46 Sodium Chloride 0.9% 10 Ml Flush Syringe IV PRN PRN LINE FLUSH
[2020-10-13] MEDS ORDERED: LORazepam 2 MG/ML VIAL IV PRN (16:48)
[2020-10-13 19:57] VITALS: BP 113/80
== END 2020-10-13 22:11 | disposition short-term general hospital (02) | DRG 375 ==
LOC: ED 12:31 → 3B-SURG 17:41 → OBSVTOIN 10-09 16:15
PROVIDERS: ADMIT Internal Medicine; ATTEND Internal Medicine
PROC: 0DBP8ZX Excision of Rectum, Via Natural or Artificial Opening Endoscopic, Diagnostic (ICD-10-PCS; principal; 2020-10-10)
PROC: 0DBL8ZX Excision of Transverse Colon, Via Natural or Artificial Opening Endoscopic, Diagnostic (ICD-10-PCS; 2020-10-10)
DX: C18.4 Malignant neoplasm of transverse colon (principal); E44.0 Moderate protein-calorie malnutrition; C79.00 Secondary malignant neoplasm of unspecified kidney and renal pelvis; E87.1 Hypo-osmolality and hyponatremia; K29.00 Acute gastritis without bleeding; F17.210 Nicotine dependence, cigarettes, uncomplicated; D75.1 Secondary polycythemia; E03.9 Hypothyroidism, unspecified; I10 Essential (primary) hypertension; K63.5 Polyp of colon; Z68.25 Body mass index [BMI] 25.0-25.9, adult; Z82.49 Family history of ischemic heart disease and other diseases of the circulatory system; Z90.49 Acquired absence of other specified parts of digestive tract; Z72.89 Other problems related to lifestyle; Z79.899 Other long term (current) drug therapy; Z79.891 Long term (current) use of opiate analgesic; Z79.01 Long term (current) use of anticoagulants
CPT/HCPCS: 36415; 74018; 74022; 74177; 80048; 80053; 81001; 82140; 83036; 83690; 83735; 85025; 87086; 88305; 93005; G0378; J0360; J1170; J1644; J2060; J2405; J2543; J2704; J2765; J3480; J7030; J7042; Q9967